=== PATIENT | female | born 1945 | race Caucasian/White ===

== ENCOUNTER 2020-09-16 20:24 | Emergency (ER) | payer MEDICARE ==
[2020-09-16 21:09] LABS: Bilirubin Negative (Negative); Blood, Urine Small (Negative); Clarity Cloudy (Clear); Glucose, Urine (Dipstick) Negative (Negative); Ketone, Urine Negative (Negative); Leukocyte Large (Negative); Nitrite Positive (Negative); Protein, Urine (Dipstick) 100 mg/dL (Neg-Trace); Specific Gravity, Urine 1.015 (1.005-1.030); Urobilinogen 0.2 mg/dL (Less than 2)
[2020-09-16 21:14] LABS: Bacteria/HPF 4+ HPF (None Seen); Mucous/LPF 2+ LPF (<2+); Squamous Epithelial 0-3 HPF (0-3); WBC/HPF 21-50 HPF (0-3)
[2020-09-16 21:23] LABS: #Lymphocytes 0.4 thou/uL (1.20-3.40); #Monocytes 0.8 thou/uL (0.11-0.59); #Neutrophils 7.9 thou/uL (1.40-6.50); %Basophils 0.5 % (0.0-1.0); %Eosinophils 0.1 % (0.0-10.0); %Lymphocytes 4.7 % (21.0-51.0); %Monocytes 9.1 % (0.0-10.0); %Neutrophils 85.6 % (42.0-75.0); Hemoglobin 9.4 g/dL (12.0-16.0); Mean Corpuscular HGB CONC 30.5 g/dL (32.0-36.0); Mean Corpuscular Hemoglobin 29.9 pg (27.0-31.0); Mean Platelet Volume 8.3 fL (7.4-10.4); Platelet Count 187 thou/uL (130-400); RBC Distribution Width 12.1 % (11.5-14.5); Red Blood Cell (RBC) Count 3.14 mill/uL (4.20-5.40); White Blood Cell (WBC) Count 9.2 thou/uL (4.8-10.8)
[2020-09-16] MEDS ORDERED: cefTRIAXone\\ROCEPHIN 1 GM VIAL ONE (21:30)
[2020-09-16 21:43] LABS: ALT (SGPT) 10 U/L (8-55); AST (SGOT) 14 U/L (5-34); Albumin 4.2 g/dL (3.4-4.8); Alkaline Phosphatase 65 U/L (40-110); Anion Gap 15 mmol/L (10-20); BUN (Urea Nitrogen) 26 mg/dL (9.8-20.1); Bilirubin, Total 0.4 mg/dL (0.2-1.2); CK (CPK) 86 U/L (29-168); Calc. Creatinine Clearance 0 mL/min (70-130); Calcium 9.2 mg/dL (7.8-10.44); Carbon Dioxide 21 mmol/L (23-31); Chloride 103 mmol/L (98-107); Globulin 3.9 g/dL (2.4-3.5); Glucose 107 mg/dL (83-110); Potassium 4.5 mmol/L (3.5-5.1); Protein, Total 8.1 g/dL (5.8-8.1); Sodium 134 mmol/L (136-145)
== END 2020-09-16 22:04 | disposition home or self-care (01) ==
LOC: MADERS 20:24
DX: N30.00 Acute cystitis without hematuria (principal); R53.1 Weakness; J44.9 Chronic obstructive pulmonary disease, unspecified; E11.40 Type 2 diabetes mellitus with diabetic neuropathy, unspecified; Z79.899 Other long term (current) drug therapy
CPT/HCPCS: 36415; 51701; 70450; 71045; 80053; 81003; 81015; 82550; 83605; 84484; 85025; 93005; 94760; 96365; J0696

== ENCOUNTER 2020-11-06 10:48 | Emergency (ER) | payer MEDICARE ==
[2020-11-06] MEDS ORDERED: Iopamidol 370 76% 100 ML VIAL IV ONE (10:49)
[2020-11-06 11:38] LABS: #Basophils 0.1 thou/uL (0.0-0.2); #Lymphocytes 0.3 thou/uL (1.20-3.40); #Monocytes 0.8 thou/uL (0.11-0.59); #Neutrophils 12.3 thou/uL (1.40-6.50); %Basophils 0.4 % (0.0-1.0); %Lymphocytes 2.3 % (21.0-51.0); %Monocytes 5.7 % (0.0-10.0); %Neutrophils 91.6 % (42.0-75.0); Hemoglobin 9.4 g/dL (12.0-16.0); Mean Corpuscular HGB CONC 33.1 g/dL (32.0-36.0); Mean Corpuscular Hemoglobin 30.6 pg (27.0-31.0); Mean Corpuscular Volume 92.5 fL (78.0-98.0); Mean Platelet Volume 9.1 fL (7.4-10.4); Platelet Count 232 thou/uL (130-400); RBC Distribution Width 12.8 % (11.5-14.5); Red Blood Cell (RBC) Count 3.07 mill/uL (4.20-5.40); White Blood Cell (WBC) Count 13.4 thou/uL (4.8-10.8)
[2020-11-06 11:56] LABS: ALT (SGPT) 13 U/L (8-55); AST (SGOT) 14 U/L (5-34); Albumin 3.4 g/dL (3.4-4.8); Alkaline Phosphatase 65 U/L (40-110); Anion Gap 15 mmol/L (10-20); BUN (Urea Nitrogen) 42 mg/dL (9.8-20.1); Bilirubin, Total 0.4 mg/dL (0.2-1.2); CK (CPK) 30 U/L (29-168); Calc. Creatinine Clearance 0 mL/min (70-130); Calcium 8.9 mg/dL (7.8-10.44); Carbon Dioxide 17 mmol/L (23-31); Chloride 94 mmol/L (98-107); Globulin 3.9 g/dL (2.4-3.5); Glucose 111 mg/dL (83-110); Potassium 4.2 mmol/L (3.5-5.1); Protein, Total 7.3 g/dL (5.8-8.1); Sodium 122 mmol/L (136-145)
[2020-11-06] MEDS ORDERED: Sodium Chloride 0.9% 1,000 ML ONE (11:59)
[2020-11-06 12:01] LABS: Bilirubin Negative (Negative); Blood, Urine Trace (Negative); Clarity Hazy (Clear); Glucose, Urine (Dipstick) Negative (Negative); Ketone, Urine Trace mg/dL (Negative); Leukocyte Trace (Negative); Nitrite Negative (Negative); Protein, Urine (Dipstick) > or equal to 300 mg/dL (Neg-Trace); Specific Gravity, Urine 1.015 (1.005-1.030); Urobilinogen 0.2 mg/dL (Less than 2)
[2020-11-06 12:06] LABS: Bacteria/HPF 1+ HPF (None Seen); RBC/HPF 0-3 HPF (0-3); Squamous Epithelial 0-3 HPF (0-3)
[2020-11-06 12:13] LABS: CKMB 2.2 ng/mL (0-6.6)
[2020-11-06] MEDS ORDERED: Levofloxacin 500 mg/D5W 100 ml Premix Bag ONE (12:42)
[2020-11-06] MEDS ORDERED: Phenazopyridine HCl 97.5 MG TABLET ONE ×2 (13:46→13:47)
== END 2020-11-06 17:05 | disposition short-term general hospital (02) ==
LOC: MADERS 10:48
DX: N39.0 Urinary tract infection, site not specified (principal); E87.1 Hypo-osmolality and hyponatremia; R79.89 Other specified abnormal findings of blood chemistry; E87.2 Acidosis; R06.2 Wheezing; R14.0 Abdominal distension (gaseous); J44.9 Chronic obstructive pulmonary disease, unspecified; E03.9 Hypothyroidism, unspecified; E11.40 Type 2 diabetes mellitus with diabetic neuropathy, unspecified; Z79.899 Other long term (current) drug therapy
CPT/HCPCS: 36415; 51701; 74177; 80053; 81003; 81015; 82550; 82553; 83605; 83880; 84484; 85025; 93005; 94760; 96365; J1956; J7050; J7620; Q9967

== ENCOUNTER 2020-11-24 15:50 | Inpatient (IN) | payer MEDICARE ==
[2020-11-24] MEDS ORDERED: Acetaminophen 325 MG TAB PO PRN (21:30)
[2020-11-24] MEDS ORDERED: Senokot S 8.6-50 MG TAB PO PRN (21:36)
[2020-11-24] MEDS ORDERED: Ondansetron ODT 4 MG TAB PO PRN (21:36)
[2020-11-24] MEDS ORDERED: Fluticasone Propionate Nasal Spray 16 gm Bottle NASAL PRN (21:47)
[2020-11-24] MEDS ORDERED: Non-Formulary Item 1 EACH (Cefazolin Sodium In 0.9 % Nacl [Cefazolin 2 G/100 Ml-0.9% Nacl IVPB SCH (22:00)
[2020-11-24] MEDS ORDERED: Albuterol Sulfate 2.5 mg/3 ml Neb NEB PRN (22:09)
[2020-11-24] MEDS ORDERED: CEFAZOLIN 2 GM in Premix Bag 1 BAG IVPB SCH (22:30)
[2020-11-24] MEDS ORDERED: Metoprolol Tartrate 50 MG TAB PO SCH (22:45)
[2020-11-24] MEDS ORDERED: Gabapentin 300 MG CAP PO SCH (22:45)
[2020-11-24] MEDS ORDERED: Hydrocortisone 1% Cream 30 GM TUBE TOP SCH (22:45)
[2020-11-24] MEDS ORDERED: Mometasone 100 MCG/PUFF (1 INHALER) INH SCH (22:45)
[2020-11-24] MEDS ORDERED: Sodium Chloride 1 GM TAB PO SCH (22:45)
[2020-11-24] MEDS ORDERED: Sucralfate 1 GM/10 ML UDCUP PO SCH (22:45)
[2020-11-24] MEDS: Acetaminophen 500 MG TAB PO PRN (22:51)
[2020-11-25 03:23] LABS: Bilirubin Negative (Negative); Blood, Urine Trace (Negative); Clarity Clear (Clear); Glucose, Urine (Dipstick) Negative (Negative); Ketone, Urine Negative (Negative); Leukocyte Small (Negative); Nitrite Negative (Negative); Protein, Urine (Dipstick) 100 mg/dL (Neg-Trace); Specific Gravity, Urine 1.015 (1.005-1.030); Urobilinogen 0.2 mg/dL (Less than 2)
[2020-11-25 03:31] LABS: Bacteria/HPF Rare-Few HPF (None Seen); RBC/HPF 0-3 HPF (0-3); Transitional Epithelial 0-3 HPF (None Seen); WBC/HPF 21-50 HPF (0-3); White Blood Cell Cast 0-3 LPF (None Seen)
[2020-11-25] MEDS: diphenhydrAMINE 25 MG CAP PO PRN ×3 (05:18→23:48)
[2020-11-25] MEDS: CEFAZOLIN 2 GM in Premix Bag 1 BAG IVPB SCH ×2 (05:30→14:01)
[2020-11-25] MEDS: Levothyroxine Sodium 88 MCG TAB PO SCH (05:31)
[2020-11-25] MEDS: Acetaminophen 500 MG TAB PO PRN ×2 (08:08→20:46)
[2020-11-25] MEDS: Floranex Packet PO SCH (08:10)
[2020-11-25] MEDS: Amlodipine 5 MG TAB PO SCH (08:11)
[2020-11-25] MEDS: Hydroxychloroquine Sulfate 200 MG TAB PO SCH (08:11)
[2020-11-25] MEDS: Sodium Chloride 1 GM TAB PO SCH ×3 (08:11→20:49)
[2020-11-25] MEDS: Metoprolol Tartrate 50 MG TAB PO SCH ×2 (08:11→20:50)
[2020-11-25] MEDS: Losartan 25 MG TAB PO SCH (08:11)
[2020-11-25] MEDS: Gabapentin 300 MG CAP PO SCH ×3 (08:12→20:48)
[2020-11-25] MEDS: FLUoxetine HCl 20 MG CAP PO SCH (08:12)
[2020-11-25] MEDS: Sucralfate 1 GM/10 ML UDCUP PO SCH ×4 (08:13→20:49)
[2020-11-25] MEDS: Mometasone 100 MCG/PUFF (1 INHALER) INH SCH ×2 (08:14→21:04)
[2020-11-25] MEDS: Polyethylene Glycol 3350 17 GM Packet PO SCH (08:31)
[2020-11-25] MEDS: Hydrocortisone 1% Cream 30 GM TUBE TOP SCH ×2 (08:46→20:50)
[2020-11-25] MEDS: DAPTOmycin 500 MG VIAL SLOW IVP SCH (16:28)
[2020-11-25] MEDS: Nystatin Cream 15 GM TUBE TOP SCH (20:48)
[2020-11-25] MEDS: Senokot S 8.6-50 MG TAB PO SCH (20:55)
[2020-11-26] MEDS: diphenhydrAMINE 25 MG CAP PO PRN ×2 (06:06→20:05)
[2020-11-26] MEDS: Levothyroxine Sodium 88 MCG TAB PO SCH (06:06)
[2020-11-26] MEDS: Polyethylene Glycol 3350 17 GM Packet PO SCH (08:17)
[2020-11-26] MEDS: Sucralfate 1 GM/10 ML UDCUP PO SCH ×4 (08:18→20:05)
[2020-11-26] MEDS: Floranex Packet PO SCH (08:18)
[2020-11-26] MEDS: Gabapentin 300 MG CAP PO SCH ×3 (08:19→20:09)
[2020-11-26] MEDS: Senokot S 8.6-50 MG TAB PO SCH ×2 (08:19→20:13)
[2020-11-26] MEDS: Sodium Chloride 1 GM TAB PO SCH ×3 (08:20→20:05)
[2020-11-26] MEDS: FLUoxetine HCl 20 MG CAP PO SCH (08:20)
[2020-11-26] MEDS: Metoprolol Tartrate 50 MG TAB PO SCH ×2 (08:21→20:11)
[2020-11-26] MEDS: Amlodipine 5 MG TAB PO SCH (08:21)
[2020-11-26] MEDS: Losartan 25 MG TAB PO SCH (08:21)
[2020-11-26] MEDS: Hydroxychloroquine Sulfate 200 MG TAB PO SCH (08:21)
[2020-11-26] MEDS: Hydrocortisone 1% Cream 30 GM TUBE TOP SCH ×2 (08:22→20:15)
[2020-11-26] MEDS: Nystatin Cream 15 GM TUBE TOP SCH ×2 (08:31→20:15)
[2020-11-26] MEDS: Mometasone 100 MCG/PUFF (1 INHALER) INH SCH ×2 (08:31→20:17)
[2020-11-26] MEDS: Acetaminophen 500 MG TAB PO PRN ×2 (12:48→20:05)
[2020-11-26] MEDS: DAPTOmycin 500 MG VIAL SLOW IVP SCH (16:21)
[2020-11-27] MEDS: Levothyroxine Sodium 88 MCG TAB PO SCH (05:34)
[2020-11-27] MEDS: Acetaminophen 500 MG TAB PO PRN ×2 (06:53→13:31)
[2020-11-27] MEDS: Sucralfate 1 GM/10 ML UDCUP PO SCH ×4 (08:14→20:33)
[2020-11-27] MEDS: Floranex Packet PO SCH (08:14)
[2020-11-27] MEDS: Senokot S 8.6-50 MG TAB PO SCH ×2 (08:15→20:32)
[2020-11-27] MEDS: Polyethylene Glycol 3350 17 GM Packet PO SCH (08:16)
[2020-11-27] MEDS: Amlodipine 5 MG TAB PO SCH (08:17)
[2020-11-27] MEDS: Sodium Chloride 1 GM TAB PO SCH ×3 (08:17→20:33)
[2020-11-27] MEDS: Losartan 25 MG TAB PO SCH (08:17)
[2020-11-27] MEDS: FLUoxetine HCl 20 MG CAP PO SCH (08:18)
[2020-11-27] MEDS: Hydroxychloroquine Sulfate 200 MG TAB PO SCH (08:18)
[2020-11-27] MEDS: Hydrocortisone 1% Cream 30 GM TUBE TOP SCH ×2 (08:19→20:30)
[2020-11-27] MEDS: Gabapentin 300 MG CAP PO SCH ×3 (08:19→20:30)
[2020-11-27] MEDS: Metoprolol Tartrate 50 MG TAB PO SCH ×2 (08:19→20:31)
[2020-11-27] MEDS: Nystatin Cream 15 GM TUBE TOP SCH ×2 (08:20→20:31)
[2020-11-27] MEDS: Mometasone 100 MCG/PUFF (1 INHALER) INH SCH ×2 (08:45→20:31)
[2020-11-27] MEDS: DAPTOmycin 500 MG VIAL SLOW IVP SCH (15:55)
[2020-11-28] MEDS: Acetaminophen 500 MG TAB PO PRN ×2 (03:51→13:16)
[2020-11-28 05:27] LABS: #Eosinphils 0.4 thou/uL (0.0-0.7); #Lymphocytes 0.8 thou/uL (1.20-3.40); #Monocytes 0.3 thou/uL (0.11-0.59); #Neutrophils 2.1 thou/uL (1.40-6.50); %Basophils 1.2 % (0.0-1.0); %Eosinophils 10.9 % (0.0-10.0); %Lymphocytes 21.5 % (21.0-51.0); %Monocytes 8.7 % (0.0-10.0); %Neutrophils 57.7 % (42.0-75.0); Hemoglobin 9.9 g/dL (12.0-16.0); Mean Corpuscular HGB CONC 31.9 g/dL (32.0-36.0); Mean Corpuscular Hemoglobin 28.9 pg (27.0-31.0); Mean Corpuscular Volume 90.8 fL (78.0-98.0); Mean Platelet Volume 7.4 fL (7.4-10.4); Platelet Count 263 thou/uL (130-400); RBC Distribution Width 14.6 % (11.5-14.5); Red Blood Cell (RBC) Count 3.42 mill/uL (4.20-5.40); White Blood Cell (WBC) Count 3.6 thou/uL (4.8-10.8)
[2020-11-28] MEDS: Levothyroxine Sodium 88 MCG TAB PO SCH (05:42)
[2020-11-28 05:44] LABS: ALT (SGPT) Less than 7 U/L (8-55); AST (SGOT) 15 U/L (5-34); Albumin 2.6 g/dL (3.4-4.8); Alkaline Phosphatase 70 U/L (40-110); Anion Gap 14 mmol/L (10-20); BUN (Urea Nitrogen) 8 mg/dL (9.8-20.1); Bilirubin, Total 0.2 mg/dL (0.2-1.2); Calc. Creatinine Clearance 68 mL/min (70-130); Carbon Dioxide 20 mmol/L (23-31); Chloride 105 mmol/L (98-107); Globulin 3.4 g/dL (2.4-3.5); Glucose 95 mg/dL (83-110); Sodium 136 mmol/L (136-145)
[2020-11-28 05:50] LABS: Potassium 2.6 mmol/L (3.5-5.1)
[2020-11-28 06:05] LABS: CK (CPK) 22 U/L (29-168); CRP (Inflammatory) 3.33 mg/dL (= or < 0.5)
[2020-11-28] MEDS ORDERED: Potassium Chloride 20 MEQ TAB PO SCH (06:15)
[2020-11-28] MEDS: Gabapentin 300 MG CAP PO SCH ×3 (08:29→21:07)
[2020-11-28] MEDS: Sucralfate 1 GM/10 ML UDCUP PO SCH ×4 (08:29→21:07)
[2020-11-28] MEDS: FLUoxetine HCl 20 MG CAP PO SCH (08:29)
[2020-11-28] MEDS: Amlodipine 5 MG TAB PO SCH (08:30)
[2020-11-28] MEDS: Losartan 25 MG TAB PO SCH (08:30)
[2020-11-28] MEDS: Hydroxychloroquine Sulfate 200 MG TAB PO SCH (08:31)
[2020-11-28] MEDS: Hydrocortisone 1% Cream 30 GM TUBE TOP SCH ×2 (08:31→21:07)
[2020-11-28] MEDS: Metoprolol Tartrate 50 MG TAB PO SCH ×2 (08:31→21:07)
[2020-11-28] MEDS: Sodium Chloride 1 GM TAB PO SCH ×3 (08:31→21:07)
[2020-11-28] MEDS: Nystatin Cream 15 GM TUBE TOP SCH ×2 (08:32→21:07)
[2020-11-28] MEDS: Mometasone 100 MCG/PUFF (1 INHALER) INH SCH ×2 (08:33→21:07)
[2020-11-28] MEDS: Polyethylene Glycol 3350 17 GM Packet PO SCH (08:34)
[2020-11-28] MEDS: Floranex Packet PO SCH (08:49)
[2020-11-28] MEDS: Senokot S 8.6-50 MG TAB PO SCH ×2 (09:00→21:07)
[2020-11-28] MEDS: DAPTOmycin 500 MG VIAL SLOW IVP SCH (15:51)
[2020-11-29] MEDS: Levothyroxine Sodium 88 MCG TAB PO SCH (05:40)
[2020-11-29] MEDS: Polyethylene Glycol 3350 17 GM Packet PO SCH (09:32)
[2020-11-29] MEDS: Sucralfate 1 GM/10 ML UDCUP PO SCH ×4 (09:32→20:59)
[2020-11-29] MEDS: FLUoxetine HCl 20 MG CAP PO SCH (09:32)
[2020-11-29] MEDS: Mometasone 100 MCG/PUFF (1 INHALER) INH SCH ×2 (09:32→20:57)
[2020-11-29] MEDS: Metoprolol Tartrate 50 MG TAB PO SCH ×2 (09:33→20:56)
[2020-11-29] MEDS: Senokot S 8.6-50 MG TAB PO SCH ×2 (09:33→20:59)
[2020-11-29] MEDS: Amlodipine 5 MG TAB PO SCH (09:33)
[2020-11-29] MEDS: Floranex Packet PO SCH (09:37)
[2020-11-29] MEDS: Acetaminophen 500 MG TAB PO PRN ×2 (09:38→21:01)
[2020-11-29] MEDS: Hydroxychloroquine Sulfate 200 MG TAB PO SCH (09:39)
[2020-11-29] MEDS: Losartan 25 MG TAB PO SCH (09:39)
[2020-11-29] MEDS: Gabapentin 300 MG CAP PO SCH ×3 (09:40→20:55)
[2020-11-29] MEDS: Nystatin Cream 15 GM TUBE TOP SCH ×2 (09:41→20:57)
[2020-11-29] MEDS: Hydrocortisone 1% Cream 30 GM TUBE TOP SCH ×2 (09:41→20:55)
[2020-11-29] MEDS: Sodium Chloride 1 GM TAB PO SCH ×3 (09:41→20:59)
[2020-11-29] MEDS: Potassium Chloride 10 MEQ TAB PO SCH (09:43)
[2020-11-29] MEDS: DAPTOmycin 500 MG VIAL SLOW IVP SCH (16:01)
[2020-11-30] MEDS: Levothyroxine Sodium 88 MCG TAB PO SCH (05:30)
[2020-11-30] MEDS: Acetaminophen 500 MG TAB PO PRN ×2 (07:19→18:03)
[2020-11-30] MEDS: Polyethylene Glycol 3350 17 GM Packet PO SCH (09:44)
[2020-11-30] MEDS: Potassium Chloride 10 MEQ TAB PO SCH (09:45)
[2020-11-30] MEDS: Sodium Chloride 1 GM TAB PO SCH ×3 (09:45→20:40)
[2020-11-30] MEDS: Hydroxychloroquine Sulfate 200 MG TAB PO SCH (09:45)
[2020-11-30] MEDS: Floranex Packet PO SCH (09:45)
[2020-11-30] MEDS: Sucralfate 1 GM/10 ML UDCUP PO SCH ×4 (09:45→20:41)
[2020-11-30] MEDS: Losartan 25 MG TAB PO SCH (09:46)
[2020-11-30] MEDS: Metoprolol Tartrate 50 MG TAB PO SCH ×2 (09:46→20:38)
[2020-11-30] MEDS: Amlodipine 5 MG TAB PO SCH (09:46)
[2020-11-30] MEDS: FLUoxetine HCl 20 MG CAP PO SCH (09:46)
[2020-11-30] MEDS: Gabapentin 300 MG CAP PO SCH ×3 (09:46→20:37)
[2020-11-30] MEDS: Nystatin Cream 15 GM TUBE TOP SCH ×2 (09:47→20:39)
[2020-11-30] MEDS: Hydrocortisone 1% Cream 30 GM TUBE TOP SCH ×2 (09:47→20:38)
[2020-11-30] MEDS: Mometasone 100 MCG/PUFF (1 INHALER) INH SCH ×2 (09:48→20:38)
[2020-11-30] MEDS: Senokot S 8.6-50 MG TAB PO SCH ×2 (09:48→20:40)
[2020-11-30] MEDS: DAPTOmycin 500 MG VIAL SLOW IVP SCH (16:12)
[2020-12-01] MEDS: Levothyroxine Sodium 88 MCG TAB PO SCH (06:14)
[2020-12-01] MEDS: Acetaminophen 500 MG TAB PO PRN ×2 (06:25→16:07)
[2020-12-01] MEDS: Saccharomyces boulardii 250 MG CAP PO SCH (08:54)
[2020-12-01] MEDS: Sodium Chloride 1 GM TAB PO SCH ×3 (08:54→20:37)
[2020-12-01] MEDS: Mometasone 100 MCG/PUFF (1 INHALER) INH SCH ×2 (08:54→20:36)
[2020-12-01] MEDS: Potassium Chloride 10 MEQ TAB PO SCH (08:55)
[2020-12-01] MEDS: Amlodipine 5 MG TAB PO SCH (08:55)
[2020-12-01] MEDS: Metoprolol Tartrate 50 MG TAB PO SCH ×2 (08:55→20:36)
[2020-12-01] MEDS: Gabapentin 300 MG CAP PO SCH ×3 (08:55→20:35)
[2020-12-01] MEDS: Hydroxychloroquine Sulfate 200 MG TAB PO SCH (08:55)
[2020-12-01] MEDS: FLUoxetine HCl 20 MG CAP PO SCH (08:55)
[2020-12-01] MEDS: Polyethylene Glycol 3350 17 GM Packet PO SCH (08:56)
[2020-12-01] MEDS: Losartan 25 MG TAB PO SCH (08:56)
[2020-12-01] MEDS: Senokot S 8.6-50 MG TAB PO SCH (08:56)
[2020-12-01] MEDS: Sucralfate 1 GM/10 ML UDCUP PO SCH ×2 (08:57→13:05)
[2020-12-01] MEDS: Hydrocortisone 1% Cream 30 GM TUBE TOP SCH ×2 (09:06→20:35)
[2020-12-01] MEDS: Nystatin Cream 15 GM TUBE TOP SCH ×2 (09:06→20:36)
[2020-12-01] MEDS ORDERED: Senokot S 8.6-50 MG TAB PO PRN (13:56)
[2020-12-01] MEDS: DAPTOmycin 500 MG VIAL SLOW IVP SCH (16:05)
[2020-12-02] MEDS: Levothyroxine Sodium 88 MCG TAB PO SCH (06:04)
[2020-12-02] MEDS: Acetaminophen 500 MG TAB PO PRN (06:19)
[2020-12-02] MEDS: Potassium Chloride 10 MEQ TAB PO SCH (08:15)
[2020-12-02] MEDS: Metoprolol Tartrate 50 MG TAB PO SCH ×2 (08:15→20:09)
[2020-12-02] MEDS: Saccharomyces boulardii 250 MG CAP PO SCH (08:15)
[2020-12-02] MEDS: Losartan 25 MG TAB PO SCH (08:15)
[2020-12-02] MEDS: Sodium Chloride 1 GM TAB PO SCH ×3 (08:15→20:09)
[2020-12-02] MEDS: FLUoxetine HCl 20 MG CAP PO SCH (08:15)
[2020-12-02] MEDS: Amlodipine 5 MG TAB PO SCH (08:15)
[2020-12-02] MEDS: Hydrocortisone 1% Cream 30 GM TUBE TOP SCH ×2 (08:16→20:12)
[2020-12-02] MEDS: Gabapentin 300 MG CAP PO SCH ×3 (08:16→20:09)
[2020-12-02] MEDS: Hydroxychloroquine Sulfate 200 MG TAB PO SCH (08:16)
[2020-12-02] MEDS: Nystatin Cream 15 GM TUBE TOP SCH ×2 (08:17→20:16)
[2020-12-02] MEDS: Mometasone 100 MCG/PUFF (1 INHALER) INH SCH ×2 (08:17→20:16)
[2020-12-02] MEDS: DAPTOmycin 500 MG VIAL SLOW IVP SCH (15:44)
[2020-12-02] MEDS: Cyclobenzaprine 10 MG TAB PO PRN (20:09)
[2020-12-03] MEDS: Levothyroxine Sodium 88 MCG TAB PO SCH (05:55)
[2020-12-03] MEDS: Saccharomyces boulardii 250 MG CAP PO SCH (08:06)
[2020-12-03] MEDS: Gabapentin 300 MG CAP PO SCH ×3 (08:07→21:23)
[2020-12-03] MEDS: Metoprolol Tartrate 50 MG TAB PO SCH ×2 (08:07→21:23)
[2020-12-03] MEDS: FLUoxetine HCl 20 MG CAP PO SCH (08:08)
[2020-12-03] MEDS: Potassium Chloride 10 MEQ TAB PO SCH (08:08)
[2020-12-03] MEDS: Hydroxychloroquine Sulfate 200 MG TAB PO SCH (08:08)
[2020-12-03] MEDS: Amlodipine 5 MG TAB PO SCH (08:08)
[2020-12-03] MEDS: Sodium Chloride 1 GM TAB PO SCH ×3 (08:09→21:23)
[2020-12-03] MEDS: Losartan 25 MG TAB PO SCH (08:09)
[2020-12-03] MEDS: Acetaminophen 500 MG TAB PO PRN (08:11)
[2020-12-03] MEDS: Hydrocortisone 1% Cream 30 GM TUBE TOP SCH ×2 (08:45→21:24)
[2020-12-03] MEDS: Mometasone 100 MCG/PUFF (1 INHALER) INH SCH ×2 (08:46→21:25)
[2020-12-03] MEDS: Nystatin Cream 15 GM TUBE TOP SCH ×2 (11:13→21:25)
[2020-12-03] MEDS: DAPTOmycin 500 MG VIAL SLOW IVP SCH (15:37)
[2020-12-03] MEDS: Cyclobenzaprine 10 MG TAB PO PRN (21:23)
[2020-12-04] MEDS: Levothyroxine Sodium 88 MCG TAB PO SCH (06:02)
[2020-12-04] MEDS: Saccharomyces boulardii 250 MG CAP PO SCH (08:40)
[2020-12-04] MEDS: Gabapentin 300 MG CAP PO SCH ×3 (08:40→20:37)
[2020-12-04] MEDS: Sodium Chloride 1 GM TAB PO SCH ×3 (08:40→20:36)
[2020-12-04] MEDS: Potassium Chloride 10 MEQ TAB PO SCH (08:40)
[2020-12-04] MEDS: Amlodipine 5 MG TAB PO SCH (08:41)
[2020-12-04] MEDS: FLUoxetine HCl 20 MG CAP PO SCH (08:41)
[2020-12-04] MEDS: Losartan 25 MG TAB PO SCH (08:41)
[2020-12-04] MEDS: Metoprolol Tartrate 50 MG TAB PO SCH ×2 (08:41→20:36)
[2020-12-04] MEDS: Acetaminophen 500 MG TAB PO PRN ×2 (08:42→18:54)
[2020-12-04] MEDS: Hydroxychloroquine Sulfate 200 MG TAB PO SCH (08:42)
[2020-12-04] MEDS: Nystatin Cream 15 GM TUBE TOP SCH ×2 (10:05→20:37)
[2020-12-04] MEDS: Mometasone 100 MCG/PUFF (1 INHALER) INH SCH ×2 (10:05→20:38)
[2020-12-04] MEDS: Hydrocortisone 1% Cream 30 GM TUBE TOP SCH ×2 (10:05→20:37)
[2020-12-04] MEDS: DAPTOmycin 500 MG VIAL SLOW IVP SCH (16:11)
[2020-12-05 05:25] LABS: #Lymphocytes 1.4 thou/uL (1.20-3.40); #Monocytes 0.4 thou/uL (0.11-0.59); #Neutrophils 2.1 thou/uL (1.40-6.50); %Basophils 0.9 % (0.0-1.0); %Eosinophils 1.1 % (0.0-10.0); %Monocytes 9.6 % (0.0-10.0); %Neutrophils 53.3 % (42.0-75.0); Hemoglobin 10.1 g/dL (12.0-16.0); Mean Corpuscular HGB CONC 32.2 g/dL (32.0-36.0); Mean Corpuscular Hemoglobin 29.2 pg (27.0-31.0); Mean Corpuscular Volume 90.6 fL (78.0-98.0); Mean Platelet Volume 9.1 fL (7.4-10.4); Platelet Count 218 thou/uL (130-400); RBC Distribution Width 15.2 % (11.5-14.5); Red Blood Cell (RBC) Count 3.45 mill/uL (4.20-5.40)
[2020-12-05 05:50] LABS: ALT (SGPT) 7 U/L (8-55); AST (SGOT) 16 U/L (5-34); Albumin 2.9 g/dL (3.4-4.8); Alkaline Phosphatase 83 U/L (40-110); Anion Gap 15 mmol/L (10-20); BUN (Urea Nitrogen) 9 mg/dL (9.8-20.1); Bilirubin, Total 0.3 mg/dL (0.2-1.2); Calc. Creatinine Clearance 67 mL/min (70-130); Calcium 8.9 mg/dL (7.8-10.44); Carbon Dioxide 21 mmol/L (23-31); Chloride 111 mmol/L (98-107); Globulin 3.8 g/dL (2.4-3.5); Glucose 92 mg/dL (83-110); Potassium 3.4 mmol/L (3.5-5.1); Protein, Total 6.7 g/dL (5.8-8.1); Sodium 144 mmol/L (136-145)
[2020-12-05] MEDS: Levothyroxine Sodium 88 MCG TAB PO SCH (05:54)
[2020-12-05 06:11] LABS: CK (CPK) 93 U/L (29-168)
[2020-12-05] MEDS: Acetaminophen 500 MG TAB PO PRN (08:25)
[2020-12-05] MEDS: Hydroxychloroquine Sulfate 200 MG TAB PO SCH (08:27)
[2020-12-05] MEDS: Gabapentin 300 MG CAP PO SCH ×3 (08:27→21:44)
[2020-12-05] MEDS: Sodium Chloride 1 GM TAB PO SCH ×3 (08:28→21:43)
[2020-12-05] MEDS: Metoprolol Tartrate 50 MG TAB PO SCH ×2 (08:28→21:43)
[2020-12-05] MEDS: Potassium Chloride 10 MEQ TAB PO SCH (08:28)
[2020-12-05] MEDS: Mometasone 100 MCG/PUFF (1 INHALER) INH SCH ×2 (08:28→21:45)
[2020-12-05] MEDS: Saccharomyces boulardii 250 MG CAP PO SCH (08:28)
[2020-12-05] MEDS: Losartan 25 MG TAB PO SCH (08:28)
[2020-12-05] MEDS: Nystatin Cream 15 GM TUBE TOP SCH ×2 (08:29→21:44)
[2020-12-05] MEDS: Hydrocortisone 1% Cream 30 GM TUBE TOP SCH ×2 (08:30→21:44)
[2020-12-05] MEDS: Amlodipine 5 MG TAB PO SCH (08:30)
[2020-12-05] MEDS: FLUoxetine HCl 20 MG CAP PO SCH (08:30)
[2020-12-05] MEDS: traMADol HCl 50 MG TAB PO PRN (09:45)
[2020-12-05] MEDS: Ibuprofen 800 MG TAB PO PRN (13:15)
[2020-12-05] MEDS: DAPTOmycin 500 MG VIAL SLOW IVP SCH (16:02)
[2020-12-05] MEDS: Cyclobenzaprine 10 MG TAB PO SCH (21:43)
[2020-12-06] MEDS: Levothyroxine Sodium 88 MCG TAB PO SCH (05:08)
[2020-12-06 06:39] LABS: Bilirubin Negative (Negative); Blood, Urine Small (Negative); Clarity Clear (Clear); Glucose, Urine (Dipstick) Negative (Negative); Ketone, Urine Negative (Negative); Leukocyte Negative (Negative); Nitrite Negative (Negative); Protein, Urine (Dipstick) 30 mg/dL (Neg-Trace); Urobilinogen 0.2 mg/dL (Less than 2); pH, Urine 6.5 (5.0-9.0)
[2020-12-06 06:42] LABS: Urine Culture Reflex No No
[2020-12-06 06:44] LABS: Bacteria/HPF Rare-Few HPF (None Seen); RBC/HPF 0-3 HPF (0-3); Squamous Epithelial 0-3 HPF (0-3); WBC/HPF 0-3 HPF (0-3)
[2020-12-06] MEDS: FLUoxetine HCl 20 MG CAP PO SCH (09:03)
[2020-12-06] MEDS: Potassium Chloride 10 MEQ TAB PO SCH (09:03)
[2020-12-06] MEDS: Hydroxychloroquine Sulfate 200 MG TAB PO SCH (09:03)
[2020-12-06] MEDS: Metoprolol Tartrate 50 MG TAB PO SCH ×2 (09:03→21:39)
[2020-12-06] MEDS: Saccharomyces boulardii 250 MG CAP PO SCH (09:03)
[2020-12-06] MEDS: Mometasone 100 MCG/PUFF (1 INHALER) INH SCH ×2 (09:03→21:40)
[2020-12-06] MEDS: Amlodipine 5 MG TAB PO SCH (09:03)
[2020-12-06] MEDS: Sodium Chloride 1 GM TAB PO SCH ×3 (09:03→21:38)
[2020-12-06] MEDS: Gabapentin 300 MG CAP PO SCH ×3 (09:04→21:38)
[2020-12-06] MEDS: Losartan 25 MG TAB PO SCH (09:04)
[2020-12-06] MEDS: Nystatin Cream 15 GM TUBE TOP SCH ×2 (09:22→21:41)
[2020-12-06] MEDS: Hydrocortisone 1% Cream 30 GM TUBE TOP SCH ×2 (09:22→21:40)
[2020-12-06] MEDS: Sucralfate 1 GM/10 ML UDCUP PO SCH ×3 (11:36→21:38)
[2020-12-06] MEDS ORDERED: Sucralfate 1 GM/10 ML UDCUP PO SCH (13:00)
[2020-12-06] MEDS: Ibuprofen 800 MG TAB PO PRN (13:40)
[2020-12-06] MEDS: DAPTOmycin 500 MG VIAL SLOW IVP SCH (16:36)
[2020-12-06] MEDS: Cyclobenzaprine 10 MG TAB PO SCH (21:38)
[2020-12-07] MEDS: Levothyroxine Sodium 88 MCG TAB PO SCH (05:11)
[2020-12-07] MEDS: Sucralfate 1 GM/10 ML UDCUP PO SCH ×4 (07:55→20:28)
[2020-12-07] MEDS: Saccharomyces boulardii 250 MG CAP PO SCH (08:11)
[2020-12-07] MEDS: Mometasone 100 MCG/PUFF (1 INHALER) INH SCH ×2 (08:11→20:29)
[2020-12-07] MEDS: Gabapentin 300 MG CAP PO SCH ×3 (08:11→20:26)
[2020-12-07] MEDS: Potassium Chloride 10 MEQ TAB PO SCH (08:12)
[2020-12-07] MEDS: Hydroxychloroquine Sulfate 200 MG TAB PO SCH (08:12)
[2020-12-07] MEDS: Metoprolol Tartrate 50 MG TAB PO SCH ×2 (08:12→20:26)
[2020-12-07] MEDS: FLUoxetine HCl 20 MG CAP PO SCH (08:12)
[2020-12-07] MEDS: Amlodipine 5 MG TAB PO SCH (08:12)
[2020-12-07] MEDS: Losartan 25 MG TAB PO SCH (08:12)
[2020-12-07] MEDS: Hydrocortisone 1% Cream 30 GM TUBE TOP SCH ×2 (08:13→20:31)
[2020-12-07] MEDS: Nystatin Cream 15 GM TUBE TOP SCH ×2 (08:13→20:31)
[2020-12-07] MEDS: Sodium Chloride 1 GM TAB PO SCH ×3 (08:16→20:27)
[2020-12-07] MEDS: Ibuprofen 800 MG TAB PO PRN (15:34)
[2020-12-07] MEDS: DAPTOmycin 500 MG VIAL SLOW IVP SCH (16:46)
[2020-12-07] MEDS: traMADol HCl 50 MG TAB PO PRN (19:28)
[2020-12-07] MEDS: Cyclobenzaprine 10 MG TAB PO SCH (20:25)
[2020-12-08] MEDS: Levothyroxine Sodium 88 MCG TAB PO SCH (06:07)
[2020-12-08] MEDS: Sucralfate 1 GM/10 ML UDCUP PO SCH ×4 (07:50→21:12)
[2020-12-08] MEDS: Gabapentin 300 MG CAP PO SCH ×3 (07:53→21:12)
[2020-12-08] MEDS: Saccharomyces boulardii 250 MG CAP PO SCH (07:53)
[2020-12-08] MEDS: Amlodipine 5 MG TAB PO SCH (07:54)
[2020-12-08] MEDS: Metoprolol Tartrate 50 MG TAB PO SCH ×2 (07:54→21:13)
[2020-12-08] MEDS: Potassium Chloride 10 MEQ TAB PO SCH (07:54)
[2020-12-08] MEDS: FLUoxetine HCl 20 MG CAP PO SCH (07:54)
[2020-12-08] MEDS: Hydroxychloroquine Sulfate 200 MG TAB PO SCH (07:54)
[2020-12-08] MEDS: Hydrocortisone 1% Cream 30 GM TUBE TOP SCH ×2 (07:54→21:13)
[2020-12-08] MEDS: Sodium Chloride 1 GM TAB PO SCH ×3 (07:54→21:12)
[2020-12-08] MEDS: Nystatin Cream 15 GM TUBE TOP SCH ×2 (07:55→21:14)
[2020-12-08] MEDS: Mometasone 100 MCG/PUFF (1 INHALER) INH SCH ×2 (08:01→21:16)
[2020-12-08] MEDS: Losartan 25 MG TAB PO SCH (12:12)
[2020-12-08] MEDS: DAPTOmycin 500 MG VIAL SLOW IVP SCH (16:46)
[2020-12-08] MEDS: Ibuprofen 800 MG TAB PO PRN (16:53)
[2020-12-08] MEDS: Cyclobenzaprine 10 MG TAB PO SCH (21:12)
[2020-12-09] MEDS: Levothyroxine Sodium 88 MCG TAB PO SCH (05:22)
[2020-12-09] MEDS: Saccharomyces boulardii 250 MG CAP PO SCH (08:40)
[2020-12-09] MEDS: Sodium Chloride 1 GM TAB PO SCH ×3 (08:40→20:33)
[2020-12-09] MEDS: Gabapentin 300 MG CAP PO SCH ×3 (08:40→20:33)
[2020-12-09] MEDS: Hydroxychloroquine Sulfate 200 MG TAB PO SCH (08:41)
[2020-12-09] MEDS: Potassium Chloride 10 MEQ TAB PO SCH (08:41)
[2020-12-09] MEDS: FLUoxetine HCl 20 MG CAP PO SCH (08:41)
[2020-12-09] MEDS: Amlodipine 5 MG TAB PO SCH (08:42)
[2020-12-09] MEDS: Sucralfate 1 GM/10 ML UDCUP PO SCH ×4 (08:43→20:33)
[2020-12-09] MEDS: Metoprolol Tartrate 50 MG TAB PO SCH (08:43)
[2020-12-09] MEDS: Mometasone 100 MCG/PUFF (1 INHALER) INH SCH ×2 (08:47→20:34)
[2020-12-09] MEDS: Polyethylene Glycol 3350 17 GM Packet PO PRN (08:55)
[2020-12-09] MEDS: Hydrocortisone 1% Cream 30 GM TUBE TOP SCH ×2 (10:48→20:34)
[2020-12-09] MEDS: Nystatin Cream 15 GM TUBE TOP SCH ×2 (10:49→20:34)
[2020-12-09] MEDS: DAPTOmycin 500 MG VIAL SLOW IVP SCH (15:30)
[2020-12-09] MEDS: Cyclobenzaprine 10 MG TAB PO SCH (20:33)
[2020-12-09] MEDS: Metoprolol Tartrate 25 MG TAB PO SCH (20:34)
[2020-12-10] MEDS: Levothyroxine Sodium 88 MCG TAB PO SCH (05:57)
[2020-12-10] MEDS: Mometasone 100 MCG/PUFF (1 INHALER) INH SCH ×2 (08:42→20:32)
[2020-12-10] MEDS: Saccharomyces boulardii 250 MG CAP PO SCH (08:42)
[2020-12-10] MEDS: Sodium Chloride 1 GM TAB PO SCH ×3 (08:42→20:34)
[2020-12-10] MEDS: Sucralfate 1 GM/10 ML UDCUP PO SCH ×4 (08:43→20:40)
[2020-12-10] MEDS: Amlodipine 5 MG TAB PO SCH (08:43)
[2020-12-10] MEDS: Metoprolol Tartrate 25 MG TAB PO SCH ×2 (08:43→20:28)
[2020-12-10] MEDS: Hydroxychloroquine Sulfate 200 MG TAB PO SCH (08:43)
[2020-12-10] MEDS: FLUoxetine HCl 20 MG CAP PO SCH (08:43)
[2020-12-10] MEDS: Gabapentin 300 MG CAP PO SCH ×3 (08:43→20:28)
[2020-12-10] MEDS: Potassium Chloride 10 MEQ TAB PO SCH (08:44)
[2020-12-10] MEDS: Hydrocortisone 1% Cream 30 GM TUBE TOP SCH ×2 (08:44→20:29)
[2020-12-10] MEDS: Nystatin Cream 15 GM TUBE TOP SCH ×2 (08:44→20:28)
[2020-12-10] MEDS: DAPTOmycin 500 MG VIAL SLOW IVP SCH (16:32)
[2020-12-10] MEDS: Cyclobenzaprine 10 MG TAB PO SCH (20:28)
[2020-12-10] MEDS: Polyethylene Glycol 3350 17 GM Packet PO PRN (20:31)
[2020-12-11] MEDS: Levothyroxine Sodium 88 MCG TAB PO SCH (05:15)
[2020-12-11] MEDS: FLUoxetine HCl 20 MG CAP PO SCH (09:04)
[2020-12-11] MEDS: Gabapentin 300 MG CAP PO SCH ×3 (09:04→20:22)
[2020-12-11] MEDS: Saccharomyces boulardii 250 MG CAP PO SCH (09:04)
[2020-12-11] MEDS: Mometasone 100 MCG/PUFF (1 INHALER) INH SCH ×2 (09:04→20:24)
[2020-12-11] MEDS: Metoprolol Tartrate 25 MG TAB PO SCH ×2 (09:04→20:23)
[2020-12-11] MEDS: Hydroxychloroquine Sulfate 200 MG TAB PO SCH (09:05)
[2020-12-11] MEDS: Sodium Chloride 1 GM TAB PO SCH ×3 (09:05→20:23)
[2020-12-11] MEDS: Potassium Chloride 10 MEQ TAB PO SCH (09:05)
[2020-12-11] MEDS: Amlodipine 5 MG TAB PO SCH (09:05)
[2020-12-11] MEDS: Sucralfate 1 GM/10 ML UDCUP PO SCH ×4 (09:05→20:22)
[2020-12-11] MEDS: Nystatin Cream 15 GM TUBE TOP SCH ×2 (09:07→20:23)
[2020-12-11] MEDS: Hydrocortisone 1% Cream 30 GM TUBE TOP SCH ×2 (09:08→20:23)
[2020-12-11] MEDS: DAPTOmycin 500 MG VIAL SLOW IVP SCH (15:54)
[2020-12-11] MEDS: Cyclobenzaprine 10 MG TAB PO SCH (20:22)
[2020-12-12] MEDS: Levothyroxine Sodium 88 MCG TAB PO SCH (04:59)
[2020-12-12 05:41] LABS: #Eosinphils 0.1 thou/uL (0.0-0.7); #Lymphocytes 1.6 thou/uL (1.20-3.40); #Monocytes 0.4 thou/uL (0.11-0.59); #Neutrophils 2.5 thou/uL (1.40-6.50); %Eosinophils 1.2 % (0.0-10.0); %Lymphocytes 34.6 % (21.0-51.0); %Monocytes 9.1 % (0.0-10.0); %Neutrophils 54.2 % (42.0-75.0); Hemoglobin 9.2 g/dL (12.0-16.0); Mean Corpuscular HGB CONC 30.6 g/dL (32.0-36.0); Mean Corpuscular Hemoglobin 27.9 pg (27.0-31.0); Mean Corpuscular Volume 91.3 fL (78.0-98.0); Mean Platelet Volume 8.6 fL (7.4-10.4); Platelet Count 231 thou/uL (130-400); RBC Distribution Width 14.9 % (11.5-14.5); Red Blood Cell (RBC) Count 3.29 mill/uL (4.20-5.40); White Blood Cell (WBC) Count 4.7 thou/uL (4.8-10.8)
[2020-12-12 06:57] LABS: ALT (SGPT) 9 U/L (8-55); AST (SGOT) 16 U/L (5-34); Albumin 2.9 g/dL (3.4-4.8); Alkaline Phosphatase 78 U/L (40-110); Anion Gap 14 mmol/L (10-20); BUN (Urea Nitrogen) 9 mg/dL (9.8-20.1); Bilirubin, Total 0.3 mg/dL (0.2-1.2); CK (CPK) 53 U/L (29-168); Calc. Creatinine Clearance 61 mL/min (70-130); Carbon Dioxide 20 mmol/L (23-31); Chloride 106 mmol/L (98-107); Globulin 3.7 g/dL (2.4-3.5); Glucose 91 mg/dL (83-110); Potassium 3.3 mmol/L (3.5-5.1); Protein, Total 6.6 g/dL (5.8-8.1); Sodium 137 mmol/L (136-145)
[2020-12-12] MEDS: Gabapentin 300 MG CAP PO SCH ×3 (08:54→20:19)
[2020-12-12] MEDS: Sucralfate 1 GM/10 ML UDCUP PO SCH ×5 (08:54→20:28)
[2020-12-12] MEDS: Mometasone 100 MCG/PUFF (1 INHALER) INH SCH ×2 (08:54→20:23)
[2020-12-12] MEDS: Metoprolol Tartrate 25 MG TAB PO SCH ×2 (08:55→20:19)
[2020-12-12] MEDS: Sodium Chloride 1 GM TAB PO SCH ×3 (08:55→20:29)
[2020-12-12] MEDS: Potassium Chloride 10 MEQ TAB PO SCH (08:55)
[2020-12-12] MEDS: Saccharomyces boulardii 250 MG CAP PO SCH (08:55)
[2020-12-12] MEDS: FLUoxetine HCl 20 MG CAP PO SCH (08:55)
[2020-12-12] MEDS: Hydroxychloroquine Sulfate 200 MG TAB PO SCH (08:55)
[2020-12-12] MEDS: Amlodipine 5 MG TAB PO SCH (08:57)
[2020-12-12] MEDS: Hydrocortisone 1% Cream 30 GM TUBE TOP SCH ×2 (09:04→20:21)
[2020-12-12] MEDS: Nystatin Cream 15 GM TUBE TOP SCH ×2 (09:05→20:25)
[2020-12-12] MEDS: DAPTOmycin 500 MG VIAL SLOW IVP SCH (16:07)
[2020-12-12] MEDS: Nystatin 500,000 UNITS/5 ML UDCUP SSW SCH ×2 (18:22→20:22)
[2020-12-12] MEDS: Cyclobenzaprine 10 MG TAB PO SCH (20:21)
[2020-12-13] MEDS: Levothyroxine Sodium 88 MCG TAB PO SCH (06:05)
[2020-12-13] MEDS: Mometasone 100 MCG/PUFF (1 INHALER) INH SCH ×2 (08:19→21:00)
[2020-12-13] MEDS: Saccharomyces boulardii 250 MG CAP PO SCH (08:20)
[2020-12-13] MEDS: Metoprolol Tartrate 25 MG TAB PO SCH (08:20)
[2020-12-13] MEDS: Hydroxychloroquine Sulfate 200 MG TAB PO SCH (08:20)
[2020-12-13] MEDS: Potassium Chloride 10 MEQ TAB PO SCH (08:20)
[2020-12-13] MEDS: Sodium Chloride 1 GM TAB PO SCH ×3 (08:20→21:45)
[2020-12-13] MEDS: Nystatin 500,000 UNITS/5 ML UDCUP SSW SCH ×4 (08:20→21:46)
[2020-12-13] MEDS: Sucralfate 1 GM/10 ML UDCUP PO SCH ×4 (08:20→21:46)
[2020-12-13] MEDS: FLUoxetine HCl 20 MG CAP PO SCH (08:20)
[2020-12-13] MEDS: Gabapentin 300 MG CAP PO SCH (08:21)
[2020-12-13] MEDS: Amlodipine 5 MG TAB PO SCH (08:21)
[2020-12-13] MEDS: Hydrocortisone 1% Cream 30 GM TUBE TOP SCH ×2 (08:22→22:17)
[2020-12-13] MEDS: Nystatin Cream 15 GM TUBE TOP SCH ×2 (08:22→21:47)
[2020-12-13] MEDS: DAPTOmycin 500 MG VIAL SLOW IVP SCH (15:38)
[2020-12-13] MEDS: Cyclobenzaprine 10 MG TAB PO SCH (21:46)
[2020-12-13 23:08] LABS: Bilirubin Negative (Negative); Blood, Urine Trace (Negative); Glucose, Urine (Dipstick) Negative (Negative); Ketone, Urine Negative (Negative); Leukocyte Large (Negative); Nitrite Positive (Negative); Protein, Urine (Dipstick) 30 mg/dL (Neg-Trace); Urobilinogen 0.2 mg/dL (Less than 2)
[2020-12-13 23:09] LABS: Clarity Cloudy (Clear)
[2020-12-13 23:14] LABS: Bacteria/HPF 1+ HPF (None Seen); RBC/HPF 0-3 HPF (0-3); Squamous Epithelial None Seen HPF (0-3); Transitional Epithelial 0-3 HPF (None Seen); WBC/HPF Greater Than 50 HPF (0-3)
[2020-12-13 23:16] LABS: Urine Culture Reflex Yes Yes
[2020-12-14 01:54] LABS: SARS-CoV-2 PCR by NAA Not Detected (NotDetected)
[2020-12-14] MEDS: Levothyroxine Sodium 88 MCG TAB PO SCH (05:09)
[2020-12-14 07:14] LABS: Thyroid Stimulating Hormone 0.51 uIU/mL (0.35-4.94)
[2020-12-14] MEDS: Sucralfate 1 GM/10 ML UDCUP PO SCH ×4 (07:53→20:54)
[2020-12-14] MEDS: Nystatin 500,000 UNITS/5 ML UDCUP SSW SCH ×4 (09:08→20:50)
[2020-12-14] MEDS: Sodium Chloride 1 GM TAB PO SCH ×3 (09:08→20:50)
[2020-12-14] MEDS: Saccharomyces boulardii 250 MG CAP PO SCH (09:08)
[2020-12-14] MEDS: Potassium Chloride 10 MEQ TAB PO SCH (09:08)
[2020-12-14] MEDS: Amlodipine 5 MG TAB PO SCH (09:09)
[2020-12-14] MEDS: FLUoxetine HCl 20 MG CAP PO SCH (09:09)
[2020-12-14] MEDS: Gabapentin 100 MG CAP PO SCH (09:09)
[2020-12-14] MEDS: Hydroxychloroquine Sulfate 200 MG TAB PO SCH (09:09)
[2020-12-14] MEDS: Mometasone 100 MCG/PUFF (1 INHALER) INH SCH ×2 (09:10→20:51)
[2020-12-14] MEDS: Hydrocortisone 1% Cream 30 GM TUBE TOP SCH ×2 (09:18→20:52)
[2020-12-14] MEDS: Nystatin Cream 15 GM TUBE TOP SCH ×2 (09:19→20:51)
[2020-12-14 12:09] LABS: Free T4 (Free Thyroxine) 0.77 ng/dL (0.70-1.48)
[2020-12-14] MEDS: cefTRIAXone\\ROCEPHIN 1 GM in Sodium Chloride 0.9% 100 ML IVPB SCH (12:41)
[2020-12-14] MEDS: DAPTOmycin 500 MG VIAL SLOW IVP SCH (17:15)
[2020-12-14] MEDS: Cyclobenzaprine 10 MG TAB PO SCH (20:50)
[2020-12-15] MEDS: Levothyroxine Sodium 88 MCG TAB PO SCH (06:13)
[2020-12-15] MEDS: Ibuprofen 800 MG TAB PO PRN (08:25)
[2020-12-15] MEDS: Sucralfate 1 GM/10 ML UDCUP PO SCH ×4 (08:26→21:10)
[2020-12-15] MEDS: Amlodipine 5 MG TAB PO SCH (08:26)
[2020-12-15] MEDS: Saccharomyces boulardii 250 MG CAP PO SCH (08:27)
[2020-12-15] MEDS: Sodium Chloride 1 GM TAB PO SCH ×3 (08:27→21:09)
[2020-12-15] MEDS: Potassium Chloride 10 MEQ TAB PO SCH (08:27)
[2020-12-15] MEDS: Gabapentin 100 MG CAP PO SCH (08:27)
[2020-12-15] MEDS: Nystatin 500,000 UNITS/5 ML UDCUP SSW SCH ×5 (08:28→21:13)
[2020-12-15] MEDS: Hydroxychloroquine Sulfate 200 MG TAB PO SCH (08:29)
[2020-12-15] MEDS: FLUoxetine HCl 20 MG CAP PO SCH (08:29)
[2020-12-15] MEDS: Mometasone 100 MCG/PUFF (1 INHALER) INH SCH ×2 (08:46→21:09)
[2020-12-15] MEDS: Hydrocortisone 1% Cream 30 GM TUBE TOP SCH ×2 (08:46→21:11)
[2020-12-15] MEDS: Nystatin Cream 15 GM TUBE TOP SCH ×2 (11:06→21:10)
[2020-12-15] MEDS: cefTRIAXone\\ROCEPHIN 1 GM in Sodium Chloride 0.9% 100 ML IVPB SCH (11:06)
[2020-12-15] MEDS: Polyethylene Glycol 3350 17 GM Packet PO PRN (11:10)
[2020-12-15] MEDS: DAPTOmycin 500 MG VIAL SLOW IVP SCH (16:04)
[2020-12-15] MEDS: Cyclobenzaprine 10 MG TAB PO SCH (21:10)
[2020-12-16] MEDS: Levothyroxine Sodium 88 MCG TAB PO SCH (06:05)
[2020-12-16] MEDS: Sucralfate 1 GM/10 ML UDCUP PO SCH ×4 (08:23→20:27)
[2020-12-16] MEDS: Mometasone 100 MCG/PUFF (1 INHALER) INH SCH ×2 (08:23→20:26)
[2020-12-16] MEDS: Nystatin 500,000 UNITS/5 ML UDCUP SSW SCH ×4 (08:23→20:26)
[2020-12-16] MEDS: Gabapentin 100 MG CAP PO SCH (08:24)
[2020-12-16] MEDS: Saccharomyces boulardii 250 MG CAP PO SCH (08:24)
[2020-12-16] MEDS: Sodium Chloride 1 GM TAB PO SCH ×3 (08:24→20:27)
[2020-12-16] MEDS: FLUoxetine HCl 20 MG CAP PO SCH (08:25)
[2020-12-16] MEDS: Amlodipine 5 MG TAB PO SCH (08:25)
[2020-12-16] MEDS: Hydroxychloroquine Sulfate 200 MG TAB PO SCH (08:25)
[2020-12-16] MEDS: Potassium Chloride 10 MEQ TAB PO SCH (08:25)
[2020-12-16] MEDS: Nystatin Cream 15 GM TUBE TOP SCH ×2 (08:25→20:26)
[2020-12-16] MEDS: Hydrocortisone 1% Cream 30 GM TUBE TOP SCH ×2 (08:25→20:26)
[2020-12-16] MEDS: cefTRIAXone\\ROCEPHIN 1 GM in Sodium Chloride 0.9% 100 ML IVPB SCH (11:05)
[2020-12-16] MEDS: DAPTOmycin 500 MG VIAL SLOW IVP SCH (15:56)
[2020-12-16] MEDS: Cyclobenzaprine 10 MG TAB PO SCH (20:25)
[2020-12-16] MEDS ORDERED: Nystatin Powder 15 GM BOT TOP PRN (21:56)
[2020-12-17] MEDS: Levothyroxine Sodium 88 MCG TAB PO SCH (05:47)
[2020-12-17] MEDS: Acetaminophen 500 MG TAB PO PRN (05:47)
[2020-12-17] MEDS: Saccharomyces boulardii 250 MG CAP PO SCH (08:34)
[2020-12-17] MEDS: FLUoxetine HCl 20 MG CAP PO SCH (08:34)
[2020-12-17] MEDS: Potassium Chloride 10 MEQ TAB PO SCH (08:34)
[2020-12-17] MEDS: Hydroxychloroquine Sulfate 200 MG TAB PO SCH (08:34)
[2020-12-17] MEDS: Gabapentin 100 MG CAP PO SCH (08:34)
[2020-12-17] MEDS: Sodium Chloride 1 GM TAB PO SCH ×3 (08:35→20:58)
[2020-12-17] MEDS: Nystatin 500,000 UNITS/5 ML UDCUP SSW SCH ×4 (08:35→20:58)
[2020-12-17] MEDS: Sucralfate 1 GM/10 ML UDCUP PO SCH ×4 (08:35→20:58)
[2020-12-17] MEDS: Amlodipine 5 MG TAB PO SCH (08:35)
[2020-12-17] MEDS: Hydrocortisone 1% Cream 30 GM TUBE TOP SCH ×2 (08:35→20:54)
[2020-12-17] MEDS: Mometasone 100 MCG/PUFF (1 INHALER) INH SCH ×2 (08:36→20:58)
[2020-12-17] MEDS: Nystatin Cream 15 GM TUBE TOP SCH ×2 (08:36→20:58)
[2020-12-17] MEDS: cefTRIAXone\\ROCEPHIN 1 GM in Sodium Chloride 0.9% 100 ML IVPB SCH (11:40)
[2020-12-17] MEDS: DAPTOmycin 500 MG VIAL SLOW IVP SCH (15:56)
[2020-12-17] MEDS: Cyclobenzaprine 10 MG TAB PO SCH (20:58)
[2020-12-18] MEDS: Levothyroxine Sodium 88 MCG TAB PO SCH (06:13)
[2020-12-18] MEDS: Hydroxychloroquine Sulfate 200 MG TAB PO SCH (08:24)
[2020-12-18] MEDS: Saccharomyces boulardii 250 MG CAP PO SCH (08:24)
[2020-12-18] MEDS: Potassium Chloride 10 MEQ TAB PO SCH (08:24)
[2020-12-18] MEDS: Gabapentin 100 MG CAP PO SCH (08:24)
[2020-12-18] MEDS: Amlodipine 5 MG TAB PO SCH (08:25)
[2020-12-18] MEDS: Mometasone 100 MCG/PUFF (1 INHALER) INH SCH ×2 (08:26→21:04)
[2020-12-18] MEDS: Hydrocortisone 1% Cream 30 GM TUBE TOP SCH ×2 (08:26→21:02)
[2020-12-18] MEDS: Sucralfate 1 GM/10 ML UDCUP PO SCH ×4 (08:26→21:03)
[2020-12-18] MEDS: FLUoxetine HCl 20 MG CAP PO SCH (08:26)
[2020-12-18] MEDS: Nystatin 500,000 UNITS/5 ML UDCUP SSW SCH ×4 (08:27→21:04)
[2020-12-18] MEDS: Nystatin Cream 15 GM TUBE TOP SCH ×2 (08:27→21:02)
[2020-12-18] MEDS: Sodium Chloride 1 GM TAB PO SCH ×3 (08:27→21:03)
[2020-12-18] MEDS: cefTRIAXone\\ROCEPHIN 1 GM in Sodium Chloride 0.9% 100 ML IVPB SCH (10:43)
[2020-12-18] MEDS: DAPTOmycin 500 MG VIAL SLOW IVP SCH (15:36)
[2020-12-18] MEDS: Cyclobenzaprine 10 MG TAB PO SCH (21:02)
[2020-12-19] MEDS: Levothyroxine Sodium 88 MCG TAB PO SCH (05:26)
[2020-12-19 05:35] LABS: #Eosinphils 0.2 thou/uL (0.0-0.7); #Lymphocytes 1.5 thou/uL (1.20-3.40); #Monocytes 0.4 thou/uL (0.11-0.59); #Neutrophils 1.9 thou/uL (1.40-6.50); %Basophils 1.2 % (0.0-1.0); %Eosinophils 4.7 % (0.0-10.0); %Lymphocytes 36.4 % (21.0-51.0); %Monocytes 10.1 % (0.0-10.0); %Neutrophils 47.7 % (42.0-75.0); Hemoglobin 9.3 g/dL (12.0-16.0); Mean Corpuscular HGB CONC 31.1 g/dL (32.0-36.0); Mean Corpuscular Hemoglobin 28.1 pg (27.0-31.0); Mean Corpuscular Volume 90.6 fL (78.0-98.0); Platelet Count 309 thou/uL (130-400); RBC Distribution Width 14.5 % (11.5-14.5); Red Blood Cell (RBC) Count 3.31 mill/uL (4.20-5.40); White Blood Cell (WBC) Count 4.1 thou/uL (4.8-10.8)
[2020-12-19 05:52] LABS: ALT (SGPT) 8 U/L (8-55); AST (SGOT) 13 U/L (5-34); Alkaline Phosphatase 76 U/L (40-110); Anion Gap 12 mmol/L (10-20); BUN (Urea Nitrogen) 7 mg/dL (9.8-20.1); Bilirubin, Total 0.3 mg/dL (0.2-1.2); CK (CPK) 43 U/L (29-168); Calc. Creatinine Clearance 58 mL/min (70-130); Calcium 9.2 mg/dL (7.8-10.44); Carbon Dioxide 21 mmol/L (23-31); Chloride 107 mmol/L (98-107); Globulin 3.8 g/dL (2.4-3.5); Glucose 89 mg/dL (83-110); Potassium 3.4 mmol/L (3.5-5.1); Protein, Total 6.8 g/dL (5.8-8.1); Sodium 137 mmol/L (136-145)
[2020-12-19] MEDS: Sucralfate 1 GM/10 ML UDCUP PO SCH ×4 (07:55→20:35)
[2020-12-19] MEDS: Potassium Chloride 10 MEQ TAB PO SCH (08:30)
[2020-12-19] MEDS: Gabapentin 100 MG CAP PO SCH (08:30)
[2020-12-19] MEDS: Saccharomyces boulardii 250 MG CAP PO SCH (08:31)
[2020-12-19] MEDS: Amlodipine 5 MG TAB PO SCH (08:31)
[2020-12-19] MEDS: Sodium Chloride 1 GM TAB PO SCH ×3 (08:31→20:34)
[2020-12-19] MEDS: FLUoxetine HCl 20 MG CAP PO SCH (08:32)
[2020-12-19] MEDS: Nystatin 500,000 UNITS/5 ML UDCUP SSW SCH ×5 (08:32→20:34)
[2020-12-19] MEDS: Hydroxychloroquine Sulfate 200 MG TAB PO SCH (08:32)
[2020-12-19] MEDS: Hydrocortisone 1% Cream 30 GM TUBE TOP SCH ×2 (08:33→20:34)
[2020-12-19] MEDS: Nystatin Cream 15 GM TUBE TOP SCH ×2 (08:33→20:34)
[2020-12-19] MEDS: Mometasone 100 MCG/PUFF (1 INHALER) INH SCH ×2 (08:34→20:34)
[2020-12-19] MEDS: cefTRIAXone\\ROCEPHIN 1 GM in Sodium Chloride 0.9% 100 ML IVPB SCH (10:35)
[2020-12-19 12:29] VITALS: BMI 25.9
[2020-12-19] MEDS: DAPTOmycin 500 MG VIAL SLOW IVP SCH (16:24)
[2020-12-19] MEDS: Cyclobenzaprine 10 MG TAB PO SCH (20:33)
[2020-12-20] MEDS: Levothyroxine Sodium 88 MCG TAB PO SCH (05:30)
[2020-12-20] MEDS: Sucralfate 1 GM/10 ML UDCUP PO SCH ×4 (08:27→20:40)
[2020-12-20] MEDS: Nystatin 500,000 UNITS/5 ML UDCUP SSW SCH ×4 (08:27→20:40)
[2020-12-20] MEDS: Potassium Chloride 10 MEQ TAB PO SCH (09:29)
[2020-12-20] MEDS: Saccharomyces boulardii 250 MG CAP PO SCH (09:29)
[2020-12-20] MEDS: Sodium Chloride 1 GM TAB PO SCH ×3 (09:29→20:39)
[2020-12-20] MEDS: Gabapentin 100 MG CAP PO SCH (09:29)
[2020-12-20] MEDS: Hydroxychloroquine Sulfate 200 MG TAB PO SCH (09:29)
[2020-12-20] MEDS: FLUoxetine HCl 20 MG CAP PO SCH (09:29)
[2020-12-20] MEDS: Mometasone 100 MCG/PUFF (1 INHALER) INH SCH ×2 (09:30→20:41)
[2020-12-20] MEDS: Amlodipine 5 MG TAB PO SCH (12:20)
[2020-12-20] MEDS: guaiFENesin ER 600 MG TAB PO PRN (12:20)
[2020-12-20] MEDS: Nystatin Cream 15 GM TUBE TOP SCH ×2 (12:21→20:40)
[2020-12-20] MEDS: Hydrocortisone 1% Cream 30 GM TUBE TOP SCH ×2 (12:21→20:39)
[2020-12-20] MEDS: Cyclobenzaprine 10 MG TAB PO SCH (20:39)
[2020-12-20] MEDS: diphenhydrAMINE 25 MG CAP PO PRN (20:42)
[2020-12-21] MEDS: Levothyroxine Sodium 88 MCG TAB PO SCH (05:16)
[2020-12-21] MEDS: Sucralfate 1 GM/10 ML UDCUP PO SCH ×4 (09:08→21:24)
[2020-12-21] MEDS: Potassium Chloride 10 MEQ TAB PO SCH (09:16)
[2020-12-21] MEDS: Sodium Chloride 1 GM TAB PO SCH ×3 (09:16→21:24)
[2020-12-21] MEDS: Hydroxychloroquine Sulfate 200 MG TAB PO SCH (09:16)
[2020-12-21] MEDS: Nystatin 500,000 UNITS/5 ML UDCUP SSW SCH ×4 (09:16→21:24)
[2020-12-21] MEDS: Gabapentin 100 MG CAP PO SCH (09:16)
[2020-12-21] MEDS: Saccharomyces boulardii 250 MG CAP PO SCH (09:17)
[2020-12-21] MEDS: Mometasone 100 MCG/PUFF (1 INHALER) INH SCH ×2 (09:17→21:26)
[2020-12-21] MEDS: FLUoxetine HCl 20 MG CAP PO SCH (09:17)
[2020-12-21] MEDS: Amlodipine 5 MG TAB PO SCH (09:17)
[2020-12-21] MEDS: Hydrocortisone 1% Cream 30 GM TUBE TOP SCH ×2 (09:22→21:24)
[2020-12-21] MEDS: Nystatin Cream 15 GM TUBE TOP SCH ×2 (09:23→21:24)
[2020-12-21] MEDS ORDERED: Acetaminophen 500 MG TAB PO PRN (12:26)
[2020-12-21] MEDS: Cyclobenzaprine 10 MG TAB PO SCH (21:24)
[2020-12-21] MEDS: diphenhydrAMINE 25 MG CAP PO PRN (21:24)
[2020-12-21] MEDS: guaiFENesin ER 600 MG TAB PO PRN (21:24)
[2020-12-22 00:43] LABS: SARS-CoV-2 PCR by NAA Not Detected (NotDetected)
[2020-12-22] MEDS: Levothyroxine Sodium 88 MCG TAB PO SCH (05:47)
[2020-12-22] MEDS: Sucralfate 1 GM/10 ML UDCUP PO SCH ×4 (08:19→20:42)
[2020-12-22] MEDS: Gabapentin 100 MG CAP PO SCH (08:19)
[2020-12-22] MEDS: Sodium Chloride 1 GM TAB PO SCH ×3 (08:20→20:39)
[2020-12-22] MEDS: FLUoxetine HCl 20 MG CAP PO SCH (08:20)
[2020-12-22] MEDS: Amlodipine 5 MG TAB PO SCH (08:20)
[2020-12-22] MEDS: Potassium Chloride 10 MEQ TAB PO SCH (08:20)
[2020-12-22] MEDS: Saccharomyces boulardii 250 MG CAP PO SCH (08:20)
[2020-12-22] MEDS: Hydroxychloroquine Sulfate 200 MG TAB PO SCH (08:20)
[2020-12-22] MEDS: Hydrocortisone 1% Cream 30 GM TUBE TOP SCH ×2 (08:21→20:39)
[2020-12-22] MEDS: Mometasone 100 MCG/PUFF (1 INHALER) INH SCH ×2 (08:21→20:42)
[2020-12-22] MEDS: Nystatin 500,000 UNITS/5 ML UDCUP SSW SCH (08:24)
[2020-12-22] MEDS: Nystatin Cream 15 GM TUBE TOP SCH ×2 (08:33→20:39)
[2020-12-22] MEDS: Cyclobenzaprine 10 MG TAB PO SCH (20:39)
[2020-12-23] MEDS: Levothyroxine Sodium 88 MCG TAB PO SCH (05:49)
[2020-12-23] MEDS: Gabapentin 100 MG CAP PO SCH (08:20)
[2020-12-23] MEDS: Amlodipine 5 MG TAB PO SCH (08:20)
[2020-12-23] MEDS: Potassium Chloride 10 MEQ TAB PO SCH (08:20)
[2020-12-23] MEDS: Sucralfate 1 GM/10 ML UDCUP PO SCH ×4 (08:20→20:28)
[2020-12-23] MEDS: Hydroxychloroquine Sulfate 200 MG TAB PO SCH (08:20)
[2020-12-23] MEDS: Polyethylene Glycol 3350 17 GM Packet PO PRN (08:20)
[2020-12-23] MEDS: Sodium Chloride 1 GM TAB PO SCH ×3 (08:20→20:15)
[2020-12-23] MEDS: Bisacodyl 5 MG TAB PO PRN (08:21)
[2020-12-23] MEDS: FLUoxetine HCl 20 MG CAP PO SCH (08:21)
[2020-12-23] MEDS: Saccharomyces boulardii 250 MG CAP PO SCH (08:21)
[2020-12-23] MEDS: Nystatin Cream 15 GM TUBE TOP SCH ×2 (08:23→20:16)
[2020-12-23] MEDS: Mometasone 100 MCG/PUFF (1 INHALER) INH SCH ×2 (08:23→20:21)
[2020-12-23] MEDS: Hydrocortisone 1% Cream 30 GM TUBE TOP SCH ×2 (08:23→20:21)
[2020-12-23] MEDS: Cyclobenzaprine 10 MG TAB PO SCH (20:15)
[2020-12-24] MEDS: Levothyroxine Sodium 88 MCG TAB PO SCH (06:57)
[2020-12-24] MEDS: Saccharomyces boulardii 250 MG CAP PO SCH (09:06)
[2020-12-24] MEDS: Gabapentin 100 MG CAP PO SCH (09:06)
[2020-12-24] MEDS: Sucralfate 1 GM/10 ML UDCUP PO SCH ×4 (09:06→20:04)
[2020-12-24] MEDS: Amlodipine 5 MG TAB PO SCH (09:07)
[2020-12-24] MEDS: Potassium Chloride 10 MEQ TAB PO SCH (09:07)
[2020-12-24] MEDS: FLUoxetine HCl 20 MG CAP PO SCH (09:07)
[2020-12-24] MEDS: Hydrocortisone 1% Cream 30 GM TUBE TOP SCH ×2 (09:08→20:03)
[2020-12-24] MEDS: Nystatin Cream 15 GM TUBE TOP SCH ×2 (09:08→20:03)
[2020-12-24] MEDS: Mometasone 100 MCG/PUFF (1 INHALER) INH SCH ×2 (09:09→20:12)
[2020-12-24] MEDS: Sodium Chloride 1 GM TAB PO SCH ×3 (09:16→20:01)
[2020-12-24] MEDS: Cyclobenzaprine 10 MG TAB PO SCH (20:02)
[2020-12-25] MEDS: Bisacodyl 5 MG TAB PO PRN (01:05)
[2020-12-25] MEDS: Levothyroxine Sodium 88 MCG TAB PO SCH (05:24)
[2020-12-25] MEDS: Sucralfate 1 GM/10 ML UDCUP PO SCH ×4 (08:39→20:20)
[2020-12-25] MEDS: Saccharomyces boulardii 250 MG CAP PO SCH (08:40)
[2020-12-25] MEDS: Potassium Chloride 10 MEQ TAB PO SCH (08:40)
[2020-12-25] MEDS: Sodium Chloride 1 GM TAB PO SCH ×3 (08:40→20:19)
[2020-12-25] MEDS: Amlodipine 5 MG TAB PO SCH (08:40)
[2020-12-25] MEDS: Gabapentin 100 MG CAP PO SCH (08:40)
[2020-12-25] MEDS: FLUoxetine HCl 20 MG CAP PO SCH (08:40)
[2020-12-25] MEDS: Mometasone 100 MCG/PUFF (1 INHALER) INH SCH ×2 (08:45→20:19)
[2020-12-25] MEDS: Nystatin Cream 15 GM TUBE TOP SCH ×2 (08:47→20:19)
[2020-12-25] MEDS: Hydrocortisone 1% Cream 30 GM TUBE TOP SCH ×2 (08:47→20:19)
[2020-12-25] MEDS: Cyclobenzaprine 10 MG TAB PO SCH (20:20)
[2020-12-26] MEDS: Levothyroxine Sodium 88 MCG TAB PO SCH (05:09)
[2020-12-26] MEDS: FLUoxetine HCl 20 MG CAP PO SCH (08:40)
[2020-12-26] MEDS: Mometasone 100 MCG/PUFF (1 INHALER) INH SCH ×2 (08:40→20:38)
[2020-12-26] MEDS: Amlodipine 5 MG TAB PO SCH (08:40)
[2020-12-26] MEDS: Sucralfate 1 GM/10 ML UDCUP PO SCH ×4 (08:42→20:39)
[2020-12-26] MEDS: Gabapentin 100 MG CAP PO SCH (08:42)
[2020-12-26] MEDS: Hydrocortisone 1% Cream 30 GM TUBE TOP SCH ×2 (08:43→20:38)
[2020-12-26] MEDS: Hydroxychloroquine Sulfate 200 MG TAB PO SCH (08:44)
[2020-12-26] MEDS: Sodium Chloride 1 GM TAB PO SCH ×3 (08:45→20:39)
[2020-12-26] MEDS: Saccharomyces boulardii 250 MG CAP PO SCH (08:45)
[2020-12-26] MEDS: Nystatin Cream 15 GM TUBE TOP SCH ×2 (08:45→20:38)
[2020-12-26] MEDS: Potassium Chloride 10 MEQ TAB PO SCH (08:45)
[2020-12-26] MEDS: Ibuprofen 800 MG TAB PO PRN (18:22)
[2020-12-26] MEDS: Cyclobenzaprine 10 MG TAB PO SCH (20:38)
[2020-12-27] MEDS: Levothyroxine Sodium 88 MCG TAB PO SCH (05:22)
[2020-12-27] MEDS: Sucralfate 1 GM/10 ML UDCUP PO SCH ×4 (08:11→20:12)
[2020-12-27] MEDS: Mometasone 100 MCG/PUFF (1 INHALER) INH SCH ×2 (08:14→20:10)
[2020-12-27] MEDS: Ibuprofen 800 MG TAB PO PRN (08:16)
[2020-12-27] MEDS: Gabapentin 100 MG CAP PO SCH (08:17)
[2020-12-27] MEDS: FLUoxetine HCl 20 MG CAP PO SCH (08:17)
[2020-12-27] MEDS: Saccharomyces boulardii 250 MG CAP PO SCH (08:17)
[2020-12-27] MEDS: Hydroxychloroquine Sulfate 200 MG TAB PO SCH (08:17)
[2020-12-27] MEDS: Hydrocortisone 1% Cream 30 GM TUBE TOP SCH ×2 (08:18→20:11)
[2020-12-27] MEDS: Amlodipine 5 MG TAB PO SCH (08:18)
[2020-12-27] MEDS: Sodium Chloride 1 GM TAB PO SCH ×3 (08:19→20:11)
[2020-12-27] MEDS: Nystatin Cream 15 GM TUBE TOP SCH ×2 (08:19→20:11)
[2020-12-27] MEDS: Potassium Chloride 10 MEQ TAB PO SCH (08:19)
[2020-12-27] MEDS: Cyclobenzaprine 10 MG TAB PO SCH (20:10)
[2020-12-28] MEDS: Levothyroxine Sodium 88 MCG TAB PO SCH (05:48)
[2020-12-28] MEDS: Sucralfate 1 GM/10 ML UDCUP PO SCH ×2 (07:23→11:11)
[2020-12-28 08:28] VITALS: BP 110/71; TEMP 97.5
[2020-12-28] MEDS: Saccharomyces boulardii 250 MG CAP PO SCH (09:17)
[2020-12-28] MEDS: Amlodipine 5 MG TAB PO SCH (09:17)
[2020-12-28] MEDS: Gabapentin 100 MG CAP PO SCH (09:18)
[2020-12-28] MEDS: FLUoxetine HCl 20 MG CAP PO SCH (09:19)
[2020-12-28] MEDS: Hydrocortisone 1% Cream 30 GM TUBE TOP SCH (09:19)
[2020-12-28] MEDS: Mometasone 100 MCG/PUFF (1 INHALER) INH SCH (09:20)
[2020-12-28] MEDS: Hydroxychloroquine Sulfate 200 MG TAB PO SCH (09:20)
[2020-12-28] MEDS: Nystatin Cream 15 GM TUBE TOP SCH (09:20)
[2020-12-28] MEDS: Potassium Chloride 10 MEQ TAB PO SCH (09:21)
[2020-12-28] MEDS: Sodium Chloride 1 GM TAB PO SCH (09:21)
== END 2020-12-28 13:20 | disposition home or self-care (01) | DRG 95 ==
LOC: MADMS 18:06
PROVIDERS: ADMIT Family Medicine; ATTEND Family Medicine
DX: G06.2 Extradural and subdural abscess, unspecified (principal); S32.010A Wedge compression fracture of first lumbar vertebra, initial encounter for closed fracture; R78.81 Bacteremia; E87.1 Hypo-osmolality and hyponatremia; B37.0 Candidal stomatitis; N39.0 Urinary tract infection, site not specified; R53.81 Other malaise; B95.61 Methicillin susceptible Staphylococcus aureus infection as the cause of diseases classified elsewhere; M32.9 Systemic lupus erythematosus, unspecified; J98.4 Other disorders of lung; J44.9 Chronic obstructive pulmonary disease, unspecified; D64.9 Anemia, unspecified; E78.2 Mixed hyperlipidemia; F32.9 Major depressive disorder, single episode, unspecified; M81.0 Age-related osteoporosis without current pathological fracture; K20.90 Esophagitis, unspecified without bleeding; N18.30 Chronic kidney disease, stage 3 unspecified; L23.3 Allergic contact dermatitis due to drugs in contact with skin; I12.9 Hypertensive chronic kidney disease with stage 1 through stage 4 chronic kidney disease, or unspecified chronic kidney disease; Z96.641 Presence of right artificial hip joint; K25.9 Gastric ulcer, unspecified as acute or chronic, without hemorrhage or perforation; E03.9 Hypothyroidism, unspecified; X58.XXXA Exposure to other specified factors, initial encounter; R63.0 Anorexia; Z20.822 Contact with and (suspected) exposure to COVID-19; R26.81 Unsteadiness on feet; E87.6 Hypokalemia; M25.421 Effusion, right elbow; M54.5 Low back pain; R41.0 Disorientation, unspecified; I95.9 Hypotension, unspecified; M62.838 Other muscle spasm; Z88.2 Allergy status to sulfonamides; Z88.0 Allergy status to penicillin; Z88.1 Allergy status to other antibiotic agents; Z79.899 Other long term (current) drug therapy; Z98.49 Cataract extraction status, unspecified eye; Z90.710 Acquired absence of both cervix and uterus; Z68.25 Body mass index [BMI] 25.0-25.9, adult
CPT/HCPCS: 36415; 36416; 70450; 72100; 72220; 80053; 81001; 82550; 84132; 84439; 84443; 85025; 86140; 87077; 87086; 87186; 94640; J0690; J0696; J0878; J3490; J7620; Q0163; U0003; U0005

== ENCOUNTER 2020-12-30 19:00 | Emergency (ER) | payer MEDICARE ==
[2020-12-30 20:11] LABS: Bilirubin Negative (Negative); Blood, Urine Negative (Negative); Clarity Clear (Clear); Glucose, Urine (Dipstick) Negative (Negative); Ketone, Urine Negative (Negative); Leukocyte Negative (Negative); Nitrite Negative (Negative); Protein, Urine (Dipstick) 30 mg/dL (Neg-Trace); Specific Gravity, Urine 1.015 (1.005-1.030); Urobilinogen 0.2 mg/dL (Less than 2)
[2020-12-30 20:16] LABS: Bacteria/HPF Rare-Few HPF (None Seen); RBC/HPF None Seen HPF (0-3); Squamous Epithelial 0-3 HPF (0-3)
[2020-12-30] MEDS ORDERED: Nitrofurantoin Monohyd/M-Cryst 100 MG CAP ONE (20:34)
== END 2020-12-30 20:39 | disposition home or self-care (01) ==
LOC: MADERS 19:00
DX: N39.0 Urinary tract infection, site not specified (principal); J44.9 Chronic obstructive pulmonary disease, unspecified; E11.40 Type 2 diabetes mellitus with diabetic neuropathy, unspecified; E03.9 Hypothyroidism, unspecified
CPT/HCPCS: 51701; 81003; 81015; 87086

== ENCOUNTER 2021-01-04 04:32 | Emergency (ER) | payer MEDICARE ==
[2021-01-04 05:43] LABS: #Eosinphils 0.2 thou/uL (0.0-0.7); #Lymphocytes 1.3 thou/uL (1.20-3.40); #Monocytes 0.6 thou/uL (0.11-0.59); %Basophils 0.6 % (0.0-1.0); %Eosinophils 2.4 % (0.0-10.0); %Lymphocytes 15.5 % (21.0-51.0); %Monocytes 6.9 % (0.0-10.0); %Neutrophils 74.5 % (42.0-75.0); Hemoglobin 9.9 g/dL (12.0-16.0); Mean Corpuscular Hemoglobin 28.1 pg (27.0-31.0); Mean Corpuscular Volume 90.6 fL (78.0-98.0); Mean Platelet Volume 7.6 fL (7.4-10.4); Platelet Count 319 thou/uL (130-400); RBC Distribution Width 15.6 % (11.5-14.5); Red Blood Cell (RBC) Count 3.52 mill/uL (4.20-5.40); White Blood Cell (WBC) Count 8.1 thou/uL (4.8-10.8)
[2021-01-04 05:57] LABS: Base Excess-Venous -1.9 mmol/L (-2.0 to 3.0); Bicarbonate (HCO3v) 23.4 mmol/L (22.0-28.0); Chloride 100 mmol/L (98-107); Hemoglobin - Calc 11.1 g/dL (12.0-16.0); Potassium 3.9 mmol/L (3.5-5.1); Sodium 134 mmol/L (138-145); T. Carbon Dioxide 24.7 mmol/L (22.0-28.0)
[2021-01-04 06:00] LABS: Bilirubin Negative (Negative); Blood, Urine Negative (Negative); Clarity Clear (Clear); Glucose, Urine (Dipstick) Negative (Negative); Ketone, Urine Negative (Negative); Leukocyte Negative (Negative); Nitrite Negative (Negative); Protein, Urine (Dipstick) 30 mg/dL (Neg-Trace); Specific Gravity, Urine 1.015 (1.005-1.030); Urobilinogen 0.2 mg/dL (Less than 2)
[2021-01-04 06:08] LABS: ALT (SGPT) 8 U/L (8-55); AST (SGOT) 11 U/L (5-34); Albumin 3.7 g/dL (3.4-4.8); Alkaline Phosphatase 93 U/L (40-110); Anion Gap 15 mmol/L (10-20); BUN (Urea Nitrogen) 9 mg/dL (9.8-20.1); Bilirubin, Total 0.2 mg/dL (0.2-1.2); CK (CPK) 15 U/L (29-168); Calc. Creatinine Clearance 0 mL/min (70-130); Calcium 9.6 mg/dL (7.8-10.44); Carbon Dioxide 21 mmol/L (23-31); Chloride 100 mmol/L (98-107); Glucose 91 mg/dL (83-110); Lipase 44 U/L (8-78); Magnesium 1.5 mg/dL (1.6-2.6); Potassium 3.9 mmol/L (3.5-5.1); Protein, Total 7.7 g/dL (5.8-8.1); Sodium 132 mmol/L (136-145)
[2021-01-04] MEDS ORDERED: Orphenadrine Citrate 60 MG/2 ML VIAL ONE (06:21)
[2021-01-04 06:32] LABS: Bacteria/HPF Rare-Few HPF (None Seen); RBC/HPF 0-3 HPF (0-3); Squamous Epithelial 0-3 HPF (0-3); WBC/HPF 0-3 HPF (0-3)
[2021-01-04] MEDS ORDERED: Magnesium Oxide 400 MG TAB ONE (08:01)
[2021-01-04] MEDS ORDERED: Iopamidol 370 76% 100 ML VIAL ONE (08:07)
[2021-01-04] MEDS ORDERED: Ciprofloxacin Lactate/D5W 400 mg/200 ml Premix ONE (08:26)
[2021-01-04] MEDS ORDERED: Meropenem 1 GM VIAL ONE (09:17)
[2021-01-04] MEDS ORDERED: Fentanyl 100 MCG/2 ML VIAL ONE (13:43)
== END 2021-01-04 18:05 | disposition short-term general hospital (02) ==
LOC: MADERS 04:32
DX: G06.2 Extradural and subdural abscess, unspecified (principal); E83.42 Hypomagnesemia; J44.9 Chronic obstructive pulmonary disease, unspecified; E03.9 Hypothyroidism, unspecified; E11.40 Type 2 diabetes mellitus with diabetic neuropathy, unspecified; Z79.899 Other long term (current) drug therapy
CPT/HCPCS: 36415; 51701; 71045; 72132; 80053; 81003; 81015; 82330; 82550; 82803; 83605; 83690; 83735; 83880; 84484; 85025; 85652; 87040; 93005; 96365; 96367; 96372; 96375; J0744; J2185; J2360; J3010; J3370; J7050; Q9967

== ENCOUNTER 2021-01-17 01:23 | Emergency (ER) | payer MEDICARE ==
[2021-01-17 02:35] LABS: #Eosinphils 0.1 thou/uL (0.0-0.7); #Lymphocytes 0.8 thou/uL (1.20-3.40); #Monocytes 0.4 thou/uL (0.11-0.59); #Neutrophils 4.6 thou/uL (1.40-6.50); %Basophils 0.5 % (0.0-1.0); %Eosinophils 1.1 % (0.0-10.0); %Monocytes 6.6 % (0.0-10.0); %Neutrophils 77.8 % (42.0-75.0); Hemoglobin 8.9 g/dL (12.0-16.0); Mean Corpuscular HGB CONC 30.3 g/dL (32.0-36.0); Mean Corpuscular Hemoglobin 27.6 pg (27.0-31.0); Mean Platelet Volume 7.1 fL (7.4-10.4); Platelet Count 302 thou/uL (130-400); RBC Distribution Width 14.8 % (11.5-14.5); Red Blood Cell (RBC) Count 3.22 mill/uL (4.20-5.40); White Blood Cell (WBC) Count 5.9 thou/uL (4.8-10.8)
[2021-01-17 02:43] LABS: INR-International Normal Ratio 1.2; Prothrombin Time 15.2 sec (12.0-14.7)
[2021-01-17 02:44] LABS: PTT 37.7 sec (22.9-36.1)
[2021-01-17 02:54] LABS: ALT (SGPT) 12 U/L (8-55); AST (SGOT) 23 U/L (5-34); Albumin 3.6 g/dL (3.4-4.8); Alkaline Phosphatase 117 U/L (40-110); Anion Gap 15 mmol/L (10-20); BUN (Urea Nitrogen) 21 mg/dL (9.8-20.1); Bilirubin, Total 0.3 mg/dL (0.2-1.2); Calc. Creatinine Clearance 0 mL/min (70-130); Calcium 9.5 mg/dL (7.8-10.44); Carbon Dioxide 21 mmol/L (23-31); Chloride 101 mmol/L (98-107); Glucose 100 mg/dL (83-110); Potassium 3.7 mmol/L (3.5-5.1); Protein, Total 7.6 g/dL (5.8-8.1); Sodium 133 mmol/L (136-145)
== END 2021-01-17 03:50 | disposition home or self-care (01) ==
LOC: MADERS 01:23
DX: S00.03XA Contusion of scalp, initial encounter (principal); D64.9 Anemia, unspecified; G06.2 Extradural and subdural abscess, unspecified; R26.9 Unspecified abnormalities of gait and mobility; E11.9 Type 2 diabetes mellitus without complications; J44.9 Chronic obstructive pulmonary disease, unspecified; E03.9 Hypothyroidism, unspecified; G62.9 Polyneuropathy, unspecified; M79.81 Nontraumatic hematoma of soft tissue; Z79.899 Other long term (current) drug therapy; W19.XXXA Unspecified fall, initial encounter
CPT/HCPCS: 36415; 70450; 80053; 85025; 85610; 85730

== ENCOUNTER 2021-03-29 02:42 | Inpatient (IN) | payer MEDICARE ==
[2021-03-29 03:22] LABS: #Lymphocytes 0.8 thou/uL (1.20-3.40); #Monocytes 0.4 thou/uL (0.11-0.59); #Neutrophils 3.3 thou/uL (1.40-6.50); %Eosinophils 0.4 % (0.0-10.0); %Lymphocytes 16.8 % (21.0-51.0); %Monocytes 8.8 % (0.0-10.0); Mean Corpuscular HGB CONC 31.3 g/dL (32.0-36.0); Mean Corpuscular Hemoglobin 28.6 pg (27.0-31.0); Mean Corpuscular Volume 91.4 fL (78.0-98.0); Mean Platelet Volume 7.7 fL (7.4-10.4); Platelet Count 173 thou/uL (130-400); RBC Distribution Width 15.2 % (11.5-14.5); Red Blood Cell (RBC) Count 2.79 mill/uL (4.20-5.40); White Blood Cell (WBC) Count 4.5 thou/uL (4.8-10.8)
[2021-03-29 03:35] LABS: Bilirubin Negative (Negative); Blood, Urine Trace (Negative); Clarity Clear (Clear); Glucose, Urine (Dipstick) Negative (Negative); Ketone, Urine Negative (Negative); Leukocyte Moderate (Negative); Nitrite Negative (Negative); Protein, Urine (Dipstick) 30 mg/dL (Neg-Trace); Specific Gravity, Urine 1.015 (1.005-1.030); Urobilinogen 0.2 mg/dL (Less than 2)
[2021-03-29 03:50] LABS: Bacteria/HPF Rare-Few HPF (None Seen); RBC/HPF 0-3 HPF (0-3); Squamous Epithelial 0-3 HPF (0-3); Yeast-Budding Rare HPF (None Seen)
[2021-03-29 04:01] LABS: ALT (SGPT) 8 U/L (8-55); AST (SGOT) 13 U/L (5-34); Albumin 3.1 g/dL (3.4-4.8); Alkaline Phosphatase 64 U/L (40-110); BUN (Urea Nitrogen) 13 mg/dL (9.8-20.1); Bilirubin, Total 0.2 mg/dL (0.2-1.2); Calc. Creatinine Clearance 0 mL/min (70-130); Calcium 7.2 mg/dL (7.8-10.44); Carbon Dioxide 17 mmol/L (23-31); Globulin 2.7 g/dL (2.4-3.5); Glucose 77 mg/dL (83-110); Magnesium 1.7 mg/dL (1.6-2.6); Protein, Total 5.8 g/dL (5.8-8.1)
[2021-03-29 04:14] LABS: Chloride 106 mmol/L (98-107); Potassium 4.3 mmol/L (3.5-5.1); Sodium 135 mmol/L (136-145)
[2021-03-29] MEDS ORDERED: Levofloxacin 500 mg/D5W 100 ml Premix Bag ONE (04:18)
[2021-03-29 04:24] LABS: Anion Gap 16 mmol/L (10-20)
[2021-03-29 05:22] LABS: SARS-CoV-2 NAA Rapid Test Not Detected (NotDetected)
[2021-03-29] MEDS ORDERED: Acetaminophen 650 MG Suppository PR PRN (06:06)
[2021-03-29 07:06] VITALS: BMI 24.5
[2021-03-29] MEDS ORDERED: Non-Formulary Item 1 EACH (Acetaminophen [Tylenol] 325 MG Capsule) PO PRN (08:25)
[2021-03-29] MEDS ORDERED: Acetaminophen 325 MG TAB PO PRN (08:42)
[2021-03-29] MEDS ORDERED: Non-Formulary Item 1 EACH (Fluticasone/Umeclidin/Vilanter [Trelegy Ellipta 200-62.5-25] 1 PO SCH (09:00)
[2021-03-29] MEDS ORDERED: Non-Formulary Item 1 EACH (Magnesium Oxide [Magnesium] 400 MG Tablet) PO SCH (09:00)
[2021-03-29] MEDS: Fluticasone/Umeclidin/Vilanter [Trelegy Ellipta 200-62.5-25] INH SCH (09:00)
[2021-03-29] MEDS ORDERED: Levothyroxine Sodium 88 MCG TAB PO SCH (09:30)
[2021-03-29] MEDS: Magnesium Oxide 400 MG TAB PO SCH (10:19)
[2021-03-29] MEDS: Emollient 15 oz bottle 450 ML, Triamcinolone Acetonide 200 MG TOP SCH ×2 (10:19→20:09)
[2021-03-29] MEDS: Hydroxychloroquine Sulfate 200 MG TAB PO SCH (10:20)
[2021-03-29] MEDS: Meropenem 1 GM in Sodium Chloride 0.9% 100 ML IVPB SCH ×2 (10:20→20:09)
[2021-03-29] MEDS: Potassium Chloride 10 MEQ TAB PO SCH (10:20)
[2021-03-29] MEDS ORDERED: Enoxaparin Sodium 40 MG/0.4 ML SYRINGE SC SCH (11:45)
[2021-03-29] MEDS ORDERED: Meropenem 1 GM VIAL ONE (21:24)
[2021-03-30] MEDS: Levothyroxine Sodium 88 MCG TAB PO SCH (05:08)
[2021-03-30 05:25] LABS: #Lymphocytes 0.7 thou/uL (1.20-3.40); #Monocytes 0.4 thou/uL (0.11-0.59); #Neutrophils 1.8 thou/uL (1.40-6.50); %Basophils 0.9 % (0.0-1.0); %Eosinophils 0.9 % (0.0-10.0); %Lymphocytes 23.4 % (21.0-51.0); %Monocytes 12.6 % (0.0-10.0); %Neutrophils 62.2 % (42.0-75.0); Hemoglobin 8.1 g/dL (12.0-16.0); Mean Corpuscular HGB CONC 31.1 g/dL (32.0-36.0); Mean Corpuscular Hemoglobin 28.5 pg (27.0-31.0); Mean Corpuscular Volume 91.5 fL (78.0-98.0); Mean Platelet Volume 9.1 fL (7.4-10.4); Platelet Count 164 thou/uL (130-400); RBC Distribution Width 15.6 % (11.5-14.5); Red Blood Cell (RBC) Count 2.85 mill/uL (4.20-5.40); White Blood Cell (WBC) Count 2.9 thou/uL (4.8-10.8)
[2021-03-30 05:42] LABS: Anion Gap 17 mmol/L (10-20); BUN (Urea Nitrogen) 16 mg/dL (9.8-20.1); Calc. Creatinine Clearance 31 mL/min (70-130); Calcium 8.2 mg/dL (7.8-10.44); Carbon Dioxide 16 mmol/L (23-31); Chloride 109 mmol/L (98-107); Glucose 80 mg/dL (83-110); Potassium 4.5 mmol/L (3.5-5.1); Sodium 137 mmol/L (136-145)
[2021-03-30] MEDS ORDERED: Non-Formulary Item 1 EACH (Levothyroxine Sodium [Levothyroxine] 88 MCG Capsule) PO SCH (06:00)
[2021-03-30] MEDS: Meropenem 1 GM in Sodium Chloride 0.9% 100 ML IVPB SCH (08:43)
[2021-03-30] MEDS: Hydroxychloroquine Sulfate 200 MG TAB PO SCH (08:44)
[2021-03-30] MEDS: Emollient 15 oz bottle 450 ML, Triamcinolone Acetonide 200 MG TOP SCH ×2 (08:44→20:11)
[2021-03-30] MEDS: Enoxaparin Sodium 40 MG/0.4 ML SYRINGE SC SCH (08:44)
[2021-03-30] MEDS: Magnesium Oxide 400 MG TAB PO SCH (08:44)
[2021-03-30] MEDS: Potassium Chloride 10 MEQ TAB PO SCH (08:44)
[2021-03-30] MEDS: Fluticasone/Umeclidin/Vilanter [Trelegy Ellipta 200-62.5-25] INH SCH (08:45)
[2021-03-30] MEDS: Cefdinir 300 MG CAP PO SCH (20:11)
[2021-03-31 05:25] LABS: #Basophils 0.1 thou/uL (0.0-0.2); #Lymphocytes 0.7 thou/uL (1.20-3.40); #Monocytes 0.4 thou/uL (0.11-0.59); #Neutrophils 1.8 thou/uL (1.40-6.50); %Basophils 1.7 % (0.0-1.0); %Eosinophils 1.3 % (0.0-10.0); %Lymphocytes 22.3 % (21.0-51.0); %Monocytes 13.4 % (0.0-10.0); %Neutrophils 61.3 % (42.0-75.0); Hemoglobin 8.1 g/dL (12.0-16.0); Mean Corpuscular HGB CONC 30.9 g/dL (32.0-36.0); Mean Corpuscular Hemoglobin 28.2 pg (27.0-31.0); Mean Corpuscular Volume 91.3 fL (78.0-98.0); Mean Platelet Volume 8.5 fL (7.4-10.4); Platelet Count 170 thou/uL (130-400); RBC Distribution Width 15.5 % (11.5-14.5); Red Blood Cell (RBC) Count 2.86 mill/uL (4.20-5.40)
[2021-03-31] MEDS: Levothyroxine Sodium 88 MCG TAB PO SCH (05:35)
[2021-03-31 05:40] LABS: Anion Gap 15 mmol/L (10-20); BUN (Urea Nitrogen) 18 mg/dL (9.8-20.1); Calc. Creatinine Clearance 31 mL/min (70-130); Calcium 8.6 mg/dL (7.8-10.44); Carbon Dioxide 19 mmol/L (23-31); Chloride 110 mmol/L (98-107); Glucose 86 mg/dL (83-110); Potassium 4.6 mmol/L (3.5-5.1); Sodium 139 mmol/L (136-145)
[2021-03-31] MEDS: Potassium Chloride 10 MEQ TAB PO SCH (09:39)
[2021-03-31] MEDS: Hydroxychloroquine Sulfate 200 MG TAB PO SCH (09:39)
[2021-03-31] MEDS: Cefdinir 300 MG CAP PO SCH ×2 (09:39→20:28)
[2021-03-31] MEDS: Magnesium Oxide 400 MG TAB PO SCH (09:40)
[2021-03-31] MEDS: Enoxaparin Sodium 40 MG/0.4 ML SYRINGE SC SCH (09:40)
[2021-03-31] MEDS: Fluticasone/Umeclidin/Vilanter [Trelegy Ellipta 200-62.5-25] INH SCH (09:41)
[2021-03-31] MEDS: Emollient 15 oz bottle 450 ML, Triamcinolone Acetonide 200 MG TOP SCH ×2 (09:42→19:31)
[2021-03-31] MEDS: diphenhydrAMINE 25 MG CAP PO PRN (21:38)
[2021-04-01] MEDS: Levothyroxine Sodium 88 MCG TAB PO SCH (05:47)
[2021-04-01] MEDS: diphenhydrAMINE 25 MG CAP PO PRN (05:49)
[2021-04-01] MEDS: Magnesium Oxide 400 MG TAB PO SCH (08:37)
[2021-04-01] MEDS: Hydroxychloroquine Sulfate 200 MG TAB PO SCH (08:37)
[2021-04-01] MEDS: Fluticasone/Umeclidin/Vilanter [Trelegy Ellipta 200-62.5-25] INH SCH (08:37)
[2021-04-01] MEDS: Cefdinir 300 MG CAP PO SCH (08:37)
[2021-04-01] MEDS: Potassium Chloride 10 MEQ TAB PO SCH (08:38)
[2021-04-01] MEDS: Emollient 15 oz bottle 450 ML, Triamcinolone Acetonide 200 MG TOP SCH (08:44)
[2021-04-01] MEDS ORDERED: Enoxaparin Sodium 30 MG/0.3 ML SYRINGE SC SCH (09:00)
[2021-04-01] MEDS ORDERED: [UNRECOGNIZED DRUG - OTHER] FS SCH (09:00)
[2021-04-01 12:07] VITALS: BP 147/82; TEMP 98.5
== END 2021-04-01 12:40 | disposition swing bed (61) | DRG 872 ==
LOC: MADERS 02:42 → MADMS 05:01 → UNDOADMIN 05:01
PROVIDERS: ADMIT Family Medicine; ATTEND Family Medicine
DX: A41.9 Sepsis, unspecified organism (principal); N39.0 Urinary tract infection, site not specified; J44.9 Chronic obstructive pulmonary disease, unspecified; E78.5 Hyperlipidemia, unspecified; E03.9 Hypothyroidism, unspecified; M32.9 Systemic lupus erythematosus, unspecified; N18.30 Chronic kidney disease, stage 3 unspecified; M32.14 Glomerular disease in systemic lupus erythematosus; R26.9 Unspecified abnormalities of gait and mobility; D63.8 Anemia in other chronic diseases classified elsewhere; Z20.822 Contact with and (suspected) exposure to COVID-19; I12.9 Hypertensive chronic kidney disease with stage 1 through stage 4 chronic kidney disease, or unspecified chronic kidney disease; R29.6 Repeated falls; G62.9 Polyneuropathy, unspecified; Z90.710 Acquired absence of both cervix and uterus; Z79.899 Other long term (current) drug therapy; Z88.0 Allergy status to penicillin; Z88.2 Allergy status to sulfonamides; Z88.1 Allergy status to other antibiotic agents
CPT/HCPCS: 36415; 71045; 80048; 80053; 81003; 81015; 83605; 83735; 83880; 84443; 84484; 85025; 87040; 87077; 87086; 93005; 96365; J1650; J1956; J2185; J3490; U0002

== ENCOUNTER 2021-04-01 09:40 | Inpatient (IN) | payer MEDICARE ==
[~2021-04-01 09:40] MED LIST: Enoxaparin Sodium 30 MG/0.3 ML SYRINGE SC SCH; Keri Lotion 15 oz BOT TOP SCH; Non-Formulary Item 1 EACH (Acetaminophen [Tylenol] 325 MG Capsule) PO PRN; Triamcinolone 40 MG/ML VIAL TOP SCH
[2021-04-01 15:00] VITALS: BMI 23.4
[2021-04-01] MEDS: diphenhydrAMINE 25 MG CAP PO PRN (20:20)
[2021-04-01] MEDS: Emollient 15 oz bottle 450 ML, Triamcinolone Acetonide 200 MG TOP SCH (20:21)
[2021-04-01] MEDS: Cefdinir 300 MG CAP PO SCH (20:21)
[2021-04-02] MEDS: Levothyroxine Sodium 88 MCG TAB PO SCH (05:41)
[2021-04-02] MEDS: Fluticasone/Umeclidin/Vilanter [Trelegy Ellipta 100-62.5-25] INH SCH (08:52)
[2021-04-02] MEDS: Magnesium Oxide 400 MG TAB PO SCH (08:54)
[2021-04-02] MEDS: Enoxaparin Sodium 30 MG/0.3 ML SYRINGE SC SCH (08:54)
[2021-04-02] MEDS: Cefdinir 300 MG CAP PO SCH ×2 (08:54→20:33)
[2021-04-02] MEDS: Hydroxychloroquine Sulfate 200 MG TAB PO SCH (08:54)
[2021-04-02] MEDS: Emollient 15 oz bottle 450 ML, Triamcinolone Acetonide 200 MG TOP SCH ×2 (08:54→20:33)
[2021-04-02] MEDS: Potassium Chloride 10 MEQ TAB PO SCH (08:54)
[2021-04-02] MEDS: diphenhydrAMINE 25 MG CAP PO PRN (20:33)
[2021-04-03] MEDS: Levothyroxine Sodium 88 MCG TAB PO SCH (05:12)
[2021-04-03] MEDS: Hydroxychloroquine Sulfate 200 MG TAB PO SCH (08:16)
[2021-04-03] MEDS: Cefdinir 300 MG CAP PO SCH ×2 (08:16→20:13)
[2021-04-03] MEDS: Potassium Chloride 10 MEQ TAB PO SCH (08:16)
[2021-04-03] MEDS: Magnesium Oxide 400 MG TAB PO SCH (08:16)
[2021-04-03] MEDS: Enoxaparin Sodium 30 MG/0.3 ML SYRINGE SC SCH (08:16)
[2021-04-03] MEDS: Fluticasone/Umeclidin/Vilanter [Trelegy Ellipta 100-62.5-25] INH SCH (08:18)
[2021-04-03] MEDS: Emollient 15 oz bottle 450 ML, Triamcinolone Acetonide 200 MG TOP SCH ×2 (08:19→20:13)
[2021-04-03] MEDS ORDERED: Acetaminophen 325 MG TAB PO PRN (12:36)
[2021-04-04] MEDS: Levothyroxine Sodium 88 MCG TAB PO SCH (05:29)
[2021-04-04] MEDS: Potassium Chloride 10 MEQ TAB PO SCH (08:51)
[2021-04-04] MEDS: Enoxaparin Sodium 30 MG/0.3 ML SYRINGE SC SCH (08:51)
[2021-04-04] MEDS: Cefdinir 300 MG CAP PO SCH ×2 (08:51→20:14)
[2021-04-04] MEDS: Emollient 15 oz bottle 450 ML, Triamcinolone Acetonide 200 MG TOP SCH ×2 (08:52→20:14)
[2021-04-04] MEDS: Fluticasone/Umeclidin/Vilanter [Trelegy Ellipta 100-62.5-25] INH SCH ×2 (08:52→08:56)
[2021-04-04] MEDS: Magnesium Oxide 400 MG TAB PO SCH (08:52)
[2021-04-04] MEDS: Hydroxychloroquine Sulfate 200 MG TAB PO SCH (08:52)
[2021-04-04] MEDS ORDERED: predniSONE 10 MG TAB PO SCH (15:30)
[2021-04-04] MEDS: Betamethasone 0.1% Cream 15 GM TUBE TOP SCH (20:14)
[2021-04-05] MEDS: Levothyroxine Sodium 88 MCG TAB PO SCH (05:26)
[2021-04-05 07:08] VITALS: BP 156/79; TEMP 98.1
[2021-04-05] MEDS: Betamethasone 0.1% Cream 15 GM TUBE TOP SCH (08:29)
[2021-04-05] MEDS: Hydroxychloroquine Sulfate 200 MG TAB PO SCH (08:30)
[2021-04-05] MEDS: Potassium Chloride 10 MEQ TAB PO SCH (08:30)
[2021-04-05] MEDS: Enoxaparin Sodium 30 MG/0.3 ML SYRINGE SC SCH (08:30)
[2021-04-05] MEDS: Cefdinir 300 MG CAP PO SCH (08:30)
[2021-04-05] MEDS: Magnesium Oxide 400 MG TAB PO SCH (08:30)
[2021-04-05] MEDS: Fluticasone/Umeclidin/Vilanter [Trelegy Ellipta 100-62.5-25] INH SCH (08:31)
[2021-04-05] MEDS ORDERED: Polyethylene Glycol 3350 17 GM Packet PO SCH (09:00)
[2021-04-05] MEDS ORDERED: predniSONE 10 MG TAB PO SCH (09:00)
[2021-04-05 16:55] LABS: SARS-CoV-2 PCR by NAA Not Detected (NotDetected)
[2021-04-09] MEDS ORDERED: predniSONE 10 MG TAB PO SCH (09:00)
[2021-04-14] MEDS ORDERED: predniSONE 10 MG TAB PO SCH (09:00)
== END 2021-04-05 14:30 | disposition home health service (06) | DRG 948 ==
LOC: MADMS 12:51
PROVIDERS: ADMIT Family Medicine; ATTEND Family Medicine
DX: R53.81 Other malaise (principal); N39.0 Urinary tract infection, site not specified; Z20.822 Contact with and (suspected) exposure to COVID-19; R53.1 Weakness; R26.9 Unspecified abnormalities of gait and mobility; M32.9 Systemic lupus erythematosus, unspecified; I10 Essential (primary) hypertension; M32.14 Glomerular disease in systemic lupus erythematosus; D63.8 Anemia in other chronic diseases classified elsewhere; J44.9 Chronic obstructive pulmonary disease, unspecified; E03.9 Hypothyroidism, unspecified; R21 Rash and other nonspecific skin eruption; Z87.11 Personal history of peptic ulcer disease; Z87.19 Personal history of other diseases of the digestive system; Z98.890 Other specified postprocedural states
CPT/HCPCS: J1650; J7512; U0003; U0005